=== PATIENT | male | born 1940 | race Caucasian/White ===

== ENCOUNTER 2018-02-13 14:02 | Emergency (ER) | payer MEDICARE, SELFPAY ==
[2018-02-13 14:03] VITALS: BP 88/40; PULSE 51; RESP 18; TEMP 36.4; O2SAT 95; BMI 26.1
[2018-02-13 14:14] VITALS: BP 100/45; PULSE 45
--- NOTE | 2018-02-13 14:24 | EKG12_ITS ---
Test Reason : POSSIBLE CP Blood Pressure : / mmHG Vent. Rate : 047 BPM Atrial Rate : 047 BPM P-R Int : 268 ms QRS Dur : 100 ms QT Int : 454 ms P-R-T Axes : 057 018 089 degrees QTc Int : 401 ms Sinus bradycardia with 1st degree A-V block Otherwise normal ECG Confirmed by WALTER GREGG ([id number]), newspaper or periodical editor EILEEN FORD ([id number]) on 02/17/2018 4:00:34 PM Referred By: TAYO Confirmed By:WALTER GREGG
--- NOTE | 2018-02-13 14:24 | RAD_ITS ---
STUDY: X-RAY CHEST REASON FOR EXAM: Male, 77 years old. Diaphoresis. Back pain. Near-syncope. TECHNIQUE: Single portable chest. COMPARISON: May 22, 2015. FINDINGS: There is stable, very mild prominence to the interstitium bilaterally and diffusely. There is no focal alveolar opacification. There is no pleural effusion. There is no pneumothorax. Sternal cerclage wires and vascular clips are present from a prior sternotomy and coronary artery bypass graft procedure (CABG). There is no demonstrated mediastinal lymphadenopathy or mediastinal mass lesion. Normal visualized pulmonary arteries. There is atherosclerotic calcification of the aortic arch with tortuosity. There are diffuse degenerative changes of the visualized thoracic spine. There is no acute osseous abnormality. There is no demonstrated abnormality of the visualized soft tissue structures of the upper abdomen. RAD/Chest 1 View (Portable) IMPRESSION: Stable exam. No evident acute cardiopulmonary disease. Status post CABG. Atherosclerotic peripheral vascular disease. Electronically Signed: Tomy Gaona MD at 15:15 EDT , Service support ,
[2018-02-13] MEDS: 0.9% Normal Saline 1,000 ML 1000 ML IV (14:51)
[2018-02-13 15:01] LABS: Albumin, Serum 3.7 g/dL (3.2-5.0); BUN 35 mg/dL (7-18); BUN/Creat Ratio 16.4 RATIO (10-20); Creatinine, Serum 2.13 mg/dL (0.70-1.30); EST Glomerular Filtration Rate 32 mL/min (>60); Est Glom Filt Rate - Afr Amer 39 mL/min (>60); Estimated Creatinine Clearance 27.21 ml/min; Globulin 3.4 g/dL (2.2-4.2); Glucose 138 mg/dL (74-106); Protein, Total 7.1 g/dL (6.4-8.2)
[2018-02-13 15:02] VITALS: BP 100/48; PULSE 45; RESP 13; O2SAT 97
[2018-02-13 15:02] LABS: ALB/GLOB Ratio 1.1 RATIO (0.9-2.4); AST(SGOT) 18 U/L (15-37); Alanine Aminotransfer ALT/SGPT 24 U/L (16-61); Alkaline Phosphatase 70 U/L (45-117); Anion Gap 5 (5-15); Calcium,Total 8.6 mg/dL (8.5-10.1); Chloride 104 mmol/L (98-107); Sodium Level 138 mmol/L (136-145)
[2018-02-13 15:05] LABS: Absolute Lymphocyte Count 1.12 X10^3/ul (0.83-4.51); Absolute Neutrophil Count 4.1 X10^3/uL (2.0-7.7); Basophil# 0.01 X10^3/uL; Basophil% 0.2 % (0-1); Eosinophil# 0.36 X10^3/uL; Eosinophils% 5.9 % (0-5); Hemoglobin 15.5 g/dl (13.0-16.5); Lymphocyte # 1.12 X10^3/ul (4.0); Lymphocyte % 18.2 % (19-41); Mean Corp Hgb Conc 33.7 g/gl (32-36); Mean Corpuscular Hgb 27.9 pg (27.0-32.0); Mean Corpuscular Volume 82.7 fL (80-94); Mean Platelet Vol. 12.5 fl (6.2-12.0); Monocyte# 0.58 X10^3/uL; Monocyte% 9.4 % (0-10); Neutrophil # 4.07 X10^3/uL (2.7-7.7); Neutrophil % 66.1 % (47-70); Platelet Count 133 K/mm3 (150-450); RBC Distribution Width CV 13.7 % (11.6-14.6); RBC Distribution Width SD 41.3 fl (35.1-43.9); Red Blood Count 5.56 M/mm3 (4.6-6.2); White Blood Count 6.2 K/mm3 (4.4-11.0)
[2018-02-13 15:11] LABS: POSITIVE COUNT NO; POSITIVE DIFFERENTIAL NO; POSITIVE MORPHOLOGY NO
[2018-02-13 15:16] LABS: Lactic Acid 1.4 mmol/L (0.4-2.0)
[2018-02-13 16:00] VITALS: BP 115/53; PULSE 46; RESP 12; O2SAT 97
[2018-02-13 16:08] VITALS: BP 109/49; BP 113/52; BP 115/53; PULSE 46
--- NOTE | 2018-02-13 16:34 | ED.VISSUMM ---
- ER Visit Summary Date of Service: 02/13/18 Chief Complaint: Brawley funny History of Present Illness: The patient is a 77 M who presents for low blood pressure. He states that he just felt funny today. He states that everything was smoky. He was not really dizzy there was no near syncope. He was diaphoretic. He also had some mild back pain between shoulder blades which has since resolved. No chest pain. No shortness of breath. He did set up some diarrhea earlier this week which has since resolved. He also just started Cardura yesterday. Physical Examination: Initial blood pressure 88/40 heart rate 51 respiratory rate 18 pulse ox 95% on room air Moist mucous membranes Skin warm and dry Alert Heart regular rhythm bradycardia Lungs are clear Abdomen soft No focal or lateralizing neurological deficits Test Results: EKG shows sinus rhythm at a rate of 47 with a first-degree AV block. Laboratory studies are notable for creatinine of 2.13 which is slightly up from prior labs of 1.8. Troponin and lactic acid are normal. Emergency Department Course and Treatment: Patient does have some evidence of mild dehydration with slight increase in his creatinine. He was given an IV fluid bolus here. On reevaluation his blood pressure is improved. Static vital signs were negative. He was asymptomatic with orthostatic vital signs. He was advised to hold his Cardura. I spoke to his primary care physician for close outpatient follow-up. The patient understands return for new or worsening symptoms and was discharged home. Treatment Plan: [] Disposition: Discharge Impression: Dehydration Adverse medication reaction Hypotension This note was generated with [employer] dictation software. It may contain incorrect words, spelling, and punctuation that were not noted in review of the chart prior to signing ED Disposition - Plan for ED Patient: Chief Complaint: Hypotension Referrals: Santo Nick MD [Primary Care Provider] -
--- NOTE | 2018-02-13 16:41 | ED.DEP ---
ED Disposition - Plan for ED Patient: Chief Complaint: Hypotension Instructions: ED Hypotension All Causes, ED Dehydration Referrals: Santo Nick MD [Primary Care Provider] - Additional Instructions: STOP MARIELLA.
[2018-02-13 16:46] VITALS: BP 113/49; PULSE 52; RESP 18; O2SAT 96
== END 2018-02-13 16:57 | disposition home or self-care (01) ==
LOC: ED 14:43
PROVIDERS: Emergency Provider Emergency Medicine; Family Provider Family Medicine; PCP Family Medicine
DX: E86.0 Dehydration (principal); T88.7XXA Unspecified adverse effect of drug or medicament, initial encounter; T44.6X5A Adverse effect of alpha-adrenoreceptor antagonists, initial encounter; I95.9 Hypotension, unspecified; M54.9 Dorsalgia, unspecified; R19.7 Diarrhea, unspecified; I10 Essential (primary) hypertension; E78.00 Pure hypercholesterolemia, unspecified; K21.9 Gastro-esophageal reflux disease without esophagitis; I25.10 Atherosclerotic heart disease of native coronary artery without angina pectoris; Z95.1 Presence of aortocoronary bypass graft; Z87.891 Personal history of nicotine dependence; I44.0 Atrioventricular block, first degree
CPT/HCPCS: 71045; 80053; 83605; 84484; 85025; 93005; 99285; J7030

== ENCOUNTER → 2018-02-17 12:46 | Outpatient (CLI) | payer MEDICARE, SELFPAY ==
[2018-02-17 14:04] LABS: Anion Gap 5 (5-15); BUN 32 mg/dL (7-18); BUN/Creat Ratio 18.8 RATIO (10-20); Calcium,Total 8.7 mg/dL (8.5-10.1); Chloride 104 mmol/L (98-107); EST Glomerular Filtration Rate 42 mL/min (>60); Est Glom Filt Rate - Afr Amer 50 mL/min (>60); Glucose 100 mg/dL (74-106); Potassium 4.1 mmol/L (3.5-5.1); Sodium Level 141 mmol/L (136-145)
== END ==
PROVIDERS: Family Provider Family Medicine; PCP Family Medicine; Visit Provider Family Medicine
DX: N28.9 Disorder of kidney and ureter, unspecified (principal)
CPT/HCPCS: 36415; 80048

== ENCOUNTER → 2018-04-16 09:12 | Outpatient (CLI) | payer MEDICARE, SELFPAY ==
[2018-04-16 10:41] LABS: Albumin, Serum 3.6 g/dL (3.2-5.0); BUN 28 mg/dL (7-18); BUN/Creat Ratio 16.8 RATIO (10-20); Calcium,Total 8.6 mg/dL (8.5-10.1); Chloride 102 mmol/L (98-107); Creatinine, Serum 1.67 mg/dL (0.70-1.30); EST Glomerular Filtration Rate 42 mL/min (>60); Est Glom Filt Rate - Afr Amer 51 mL/min (>60); Glucose 131 mg/dL (74-106); Phosphorus 2.8 mg/dL (2.5-4.9); Potassium 3.9 mmol/L (3.5-5.1); Sodium Level 138 mmol/L (136-145)
[2018-04-16 12:28] LABS: Microalbumin,Random Urine 32.1 mg/L (NO RANGE EST.); Microalbumin:Creatinine Ratio 38.1 mg/g CRE (<30 mg/g CRE)
== END ==
PROVIDERS: Family Provider Family Medicine; PCP Family Medicine; Visit Provider Family Medicine
DX: N28.9 Disorder of kidney and ureter, unspecified (principal)
CPT/HCPCS: 36415; 80069; 82043; 82570

== ENCOUNTER → 2018-04-23 10:52 | Outpatient (CLI) | payer MEDICARE, SELFPAY ==
--- NOTE | 2018-04-23 10:54 | RAD_ITS ---
STUDY: X-RAY - LUMBAR SPINE REASON FOR EXAM: Male, 77 years old. Chronic low back pain with left radiculopathy TECHNIQUE: Five view(s) of the lumbar spine were obtained. COMPARISON: None FINDINGS: Normal lumbar lordosis. There is trace levoscoliosis of the lumbar spine. There is normal alignment of the vertebrae. Osteophytes are scattered throughout the lower thoracic and lumbar spine. Pedicle screws and rods are present bilaterally at L4 and L5. There is marked disc space narrowing at L5-S1. There is moderate disc space narrowing at L1-2, L2-3 and L3-4. There is atherosclerotic calcification of the abdominal aorta without a demonstrated aneurysm. RAD/L/S Spine Min 4 Views IMPRESSION: There are degenerative changes throughout the lower spine. This is most severe at L5-S1 where there is marked disc space narrowing and surrounding sclerosis. There is moderate disc space narrowing from L1 through L4. There are surgical changes at L4-5. There is trace levoscoliosis. Electronically Signed: Ximena Reeves MD at 20:21 EDT Tel Direct: [phone], Service support ,
== END ==
PROVIDERS: Family Provider Family Medicine; PCP Family Medicine; Visit Provider Family Medicine
DX: M51.37 Other intervertebral disc degeneration, lumbosacral region (principal)
CPT/HCPCS: 72110

== ENCOUNTER 2018-06-17 08:00 | Outpatient (RCR) | payer MEDICARE, SELFPAY ==
--- NOTE | 2018-04-29 10:04 | HP.PTEVAL ---
Patient's Visit Information BETH TOBIAS is a 77 year old M referred to Physical Therapy by Santo Nick with a diagnosis of Chronic lumbar DD w/ hx of fusions. Date of Evaluation: 04/29/18 Physical Therapist: Smith Bojorquez PT, - Visit Plan Frequency: 1x/Week Duration: 8weeks Plan: Dynamic lumbar stability, hip mobility stretches/manual work, LE flexibility. Pt with history of L4-5 fusion ~20 years ago. - Subjective Subjective: Pt is a 77 y/o male with referral for chronic low back pain with history of fusion. He reports his symptoms are located in the L side of his low back and L thigh/ortiz. About 6 months ago he started noticing L radicular symptoms. He does not recall any JENNA. His symptoms are inconsistent but are usually worsened with walking. He denies symptoms currently. He reports a history of two back surgeries, most recent being ~20 years ago (fusion L4-5). He did have previous PT in 2012 which was beneficial. Denies n/t in LEs, weakness, b/b incontinence, some difficulties sleeping. Reports recent fall ~1 week ago when he was walking up a step, this is the first time he fell in a long time per pt. Aggrevating factors: Prolonged standing and walking. Easing factors: sitting, rest. Occupation: retired parcel post truck driver. - Pain low back Pain Intensity (Out of 10): 0 Pain Intensity Range: 0, 10 L radicular Pain Intensity (Out of 10): 0 Pain Intensity Range: 0, 10 - Objective OBSERVATION: Appears anxious in sitting, abrasions R lateral knee. PALPATION: No tenderness, Iliac crests aligned. GAIT: Forward flexed at hips, decreased hip extension with terminal stance. ROM: Lumbar ff 75%, bb* 25% (increases), B LF 50%. Hip PROM: R mod limitation flexion, severe IR and extension; L severe limitation IR and extension. NEURO: Dermatomes intact, myotomes intact, L DTRs: L3 2+, S1 0; R DTRs L3 0, S1 0. STRENGTH: Max cues to engage TrA. FLEXIBILITY: Hamstrings and iliopsoas severe tightness. - Goals Goal 1:: Pt will demonstrate moderate B hip mobility deficits with internal rotation and extension to help normalize gait mechanics. Goal Time Frame: 4-6 Weeks Goal 2:: Pt will report ability to ambulate for 20 minutes consistently without symptom reproduction to improve tolerance with community ambulation. Goal Time Frame: 4-6 Weeks Goal 3:: Pt will report no limitation with lead electrical controls engineer to improve activity level at home. Goal Time Frame: 4-6 Weeks Goal 4:: Pt will be independent with HEP to sustain gains made in the clinic. Goal Time Frame: 4-6 Weeks Goal 5:: Pt will improve RICHARD-back score by 5 or greater to show improvement with function and QOL. Goal Time Frame: 4-6 Weeks - Rehabilitation Potential Physical Therapy Diagnosis: Pt is a 77 y/o male with referral of chronic lumbar DD w/ hx of fusions. He reports intermittent L radicular symptoms while walking as his chief complaint. On exam, he demonstrates severe hip mobility limitations, inability to isolate the transverse abdominus, and severe LE flexibility deficits. He has activity limitations that include difficulty with prolonged walking, prolonged standing. This limits his participation with community ambulation and work related tasks. Pt would benefit from skilled PT to address the mentioned impairments to maximize function. Rehabilitation Potential: Good - Anticipated Interventions Patient/Client Instruction: Educate patient on: Condition, Plan of Care For the Purpose of:: To decrease pain, To increase ROM, To improve muscle performance and motor function, To improve ability to perform ADL's, To improve ability of physical actions for home/community/work/leisure, To improve gait and locomotor functions, To improve health of tissue, To decrease soft tissue restriction, To increase flexibility/ROM, To reduce risk of recurrence, To improve self management Therapeutic Exercise to Include: Strength training, Endurance training, Postural training, Flexibilty training, Gait and locomotor training, Active ROM, Dynamic Lumbar Stabilization For the Purpose of:: To decrease pain, To increase ROM, To improve muscle performance and motor function, To increase tolerance to activity/condition/position, To improve ability of physical actions for home/community/work/leisure, To improve gait and locomotor functions, To improve health of tissue, To decrease soft tissue restriction, To increase flexibility/ROM, To improve endurance, To reduce risk of recurrence, To improve self management Manual Therapy Techniques to Include: Mobilization, Passive ROM, Soft tissue mobilization For the Purpose of:: To decrease pain, To increase ROM, To improve muscle performance and motor function, To increase tolerance to activity/condition/position, To improve ability of physical actions for home/community/work/leisure, To improve gait and locomotor functions, To improve health of tissue, To decrease soft tissue restriction, To increase flexibility/ROM, To improve endurance, To reduce risk of recurrence, To improve self management TENS: Yes IF ES: Yes Other electric stimulation: Yes Cryotherapy (ice pack, ice massage): Yes Thermo therapy (hot pack): Yes Ultrasound (thermal/non thermal): Yes For the Purpose of:: To decrease pain, To increase ROM, To decrease soft tissue restriction, To increase flexibility/ROM Thank you for the opportunity to evaluate your patient. For Medicare and Medicare HMO plans, please review the plan of care and approve it. It will need to be FAXED BACK to us at [phone] for Medicare purposes. Please let me know if there are questions or concerns regarding this plan of care. Physician Signature: Date:
--- NOTE | 2018-06-17 08:29 | HP.PTREVAL ---
Santo Nick, It has been my pleasure to treat BETH TOBIAS over the last 6 visits for Chronic lumbar DD w/ hx of fusions. Please see the progress note below for an update on the physical therapy plan of care! Subjective: DOING WELL.. EXERCISING AT HOME. NO PROBLEMS WITH ADL'S Objective/Function: POSTURE: MILD FOWARD POSTURE. NEURO:INTACT. MMT: QUADS/HAMS/HIP/ANKLE 4/5. GAIT: NORMAL LIZ RECIPROCAL PATTERN. LUMBAR ROM: FLEXION MIN/MOD LOSS,EXTENSION MOD LOSS. FLEXABLITY: HAMS MIN TIGHT Plan Plan: D/C TO HEP Goals Goal 1:: Pt will demonstrate moderate B hip mobility deficits with internal rotation and extension to help normalize gait mechanics. Goal Time Frame: 4-6 Weeks Goal Progress: Goal Met Goal 2:: Pt will report ability to ambulate for 20 minutes consistently without symptom reproduction to improve tolerance with community ambulation. Goal Time Frame: 4-6 Weeks Goal Progress: Progressing Goal 3:: Pt will report no limitation with forestry laborer to improve activity level at home. Goal Time Frame: 4-6 Weeks Goal Progress: Progressing Goal 4:: Pt will be independent with HEP to sustain gains made in the clinic. Goal Time Frame: 4-6 Weeks Goal Progress: Goal Met Goal 5:: Pt will improve RICHARD-back score by 5 or greater to show improvement with function and QOL. Goal Time Frame: 4-6 Weeks Goal Progress: Goal Met Anticipated Interventions Patient/Client Instruction: Educate patient on: Condition, Plan of Care For the Purpose of:: To decrease pain, To increase ROM, To improve muscle performance and motor function, To improve ability to perform ADL's, To improve ability of physical actions for home/community/work/leisure, To improve gait and locomotor functions, To improve health of tissue, To decrease soft tissue restriction, To increase flexibility/ROM, To reduce risk of recurrence, To improve self management Therapeutic Exercise to Include: Strength training, Endurance training, Postural training, Flexibilty training, Gait and locomotor training, Active ROM, Dynamic Lumbar Stabilization For the Purpose of:: To decrease pain, To increase ROM, To improve muscle performance and motor function, To increase tolerance to activity/condition/position, To improve ability of physical actions for home/community/work/leisure, To improve gait and locomotor functions, To improve health of tissue, To decrease soft tissue restriction, To increase flexibility/ROM, To improve endurance, To reduce risk of recurrence, To improve self management Manual Therapy Techniques to Include: Mobilization, Passive ROM, Soft tissue mobilization For the Purpose of:: To decrease pain, To increase ROM, To improve muscle performance and motor function, To increase tolerance to activity/condition/position, To improve ability of physical actions for home/community/work/leisure, To improve gait and locomotor functions, To improve health of tissue, To decrease soft tissue restriction, To increase flexibility/ROM, To improve endurance, To reduce risk of recurrence, To improve self management TENS: Yes IF ES: Yes Other electric stimulation: Yes Cryotherapy (ice pack, ice massage): Yes Thermo therapy (hot pack): Yes Ultrasound (thermal/non thermal): Yes For the Purpose of:: To decrease pain, To increase ROM, To decrease soft tissue restriction, To increase flexibility/ROM Please do not hesitate to contact me at [phone] by phone or if you have questions or concerns regarding this new plan of care! Sincerely, Smith Bojorquez PT,
--- NOTE | 2018-06-18 09:29 | HP.PTDCSUM_ITS ---
HP - PT D/C Summary It has been my pleasure to treat BETH TOBIAS under orders from Santo Nick, for the diagnosis of Chronic lumbar DD w/ hx of fusions for a total of 6 visit(s ). Discharge Date: Please see the following information for a summary of their discharge status. - Subjective Subjective: DOING WELL.. EXERCISING AT HOME. NO PROBLEMS WITH ADL'S - Pain low back Pain Intensity (Out of 10): 0 L radicular Pain Intensity (Out of 10): 0 - Overall Improvement % Improvement: 80 - Objective Objective/Function: POSTURE: MILD FOWARD POSTURE. NEURO:INTACT. MMT: QUADS/ HAMS/HIP/ANKLE 4/5. GAIT: NORMAL LIZ RECIPROCAL PATTERN. LUMBAR ROM: FLEXION MIN/MOD LOSS,EXTENSION MOD LOSS. FLEXABLITY: HAMS MIN TIGHT - Goals Goal 1:: Pt will demonstrate moderate B hip mobility deficits with internal rotation and extension to help normalize gait mechanics. Goal Progress: Goal Met Goal 2:: Pt will report ability to ambulate for 20 minutes consistently without symptom reproduction to improve tolerance with community ambulation. Goal Progress: Progressing Goal 3:: Pt will report no limitation with certified wellness program manager to improve activity level at home. Goal Progress: Progressing Goal 4:: Pt will be independent with HEP to sustain gains made in the clinic. Goal Progress: Goal Met Goal 5:: Pt will improve RICHARD-back score by 5 or greater to show improvement with function and QOL. Goal Progress: Goal Met - Plan Plan: D/C TO HEP - D/C Information If there are questions or concerns regarding this patient's physical therapy, please feel free to call me at [phone]. Thank you for the referral of this patient. Sincerely, Smith Bojorquez, PT,
== END 2018-06-17 19:00 | disposition home or self-care (01) ==
LOC: PT 08:00
PROVIDERS: Family Provider Family Medicine; PCP Family Medicine; Visit Provider Family Medicine
DX: M51.36 Other intervertebral disc degeneration, lumbar region (principal); M76.02 Gluteal tendinitis, left hip; Z98.1 Arthrodesis status
CPT/HCPCS: 97014; 97110; 97162; G0283

== ENCOUNTER → 2018-10-23 08:46 | Outpatient (CLI) | payer BC, SELFPAY ==
[2018-10-23 10:36] LABS: ALB/GLOB Ratio 1.2 RATIO (0.9-2.4); AST(SGOT) 21 U/L (15-37); Alanine Aminotransfer ALT/SGPT 30 U/L (16-61); Albumin, Serum 3.7 g/dL (3.2-5.0); Alkaline Phosphatase 68 U/L (45-117); Anion Gap 9 (5-15); BUN 25 mg/dL (7-18); BUN/Creat Ratio 16.4 RATIO (10-20); Calcium,Total 8.7 mg/dL (8.5-10.1); Chloride 105 mmol/L (98-107); Cholesterol 138 mg/dL (200); Creatinine, Serum 1.52 mg/dL (0.70-1.30); EST Glomerular Filtration Rate 47 mL/min (>60); Est Glom Filt Rate - Afr Amer 57 mL/min (>60); Glucose 123 mg/dL (74-106); High Density Lipoprotein 43 mg/dL; Potassium 3.7 mmol/L (3.5-5.1); Protein, Total 6.7 g/dL (6.4-8.2); Sodium Level 142 mmol/L (136-145); Thyroid Stim Hormone (TSH) 2.42 uIU/mL (0.358-3.74); Triglycerides 132 mg/dL; Very Low Density Lipoprotein 26 mg/dL (5-40)
[2018-10-23 10:42] LABS: Hemoglobin A1c 6.5 % (4.2-6.3)
[2018-10-23 10:44] LABS: Microalbumin,Random Urine 40.6 mg/L (NO RANGE EST.); Microalbumin:Creatinine Ratio 23.7 mg/g CRE (<30 mg/g CRE)
== END ==
PROVIDERS: Family Provider Family Medicine; PCP Family Medicine; Visit Provider Family Medicine
DX: E11.29 Type 2 diabetes mellitus with other diabetic kidney complication (principal); I10 Essential (primary) hypertension
CPT/HCPCS: 36415; 80053; 80061; 82043; 82570; 83036; 84443

== ENCOUNTER 2019-07-03 05:29 | Emergency (ER) | payer BC, SELFPAY ==
[2019-07-03] VITALS (7 sets, daily range): BP systolic 151–224; BP diastolic 58–106; PULSE 64–90; RESP 16–22; TEMP 36.6–37.3; O2SAT 95–98; BMI 26.7
--- NOTE | 2019-07-03 06:24 | CT_ITS ---
STUDY: CT ABDOMEN AND PELVIS WITH CONTRAST REASON FOR EXAM: Male, 79 years old. Diffuse abdominal pain RADIATION DOSAGE (If Supplied By Facility): CTDIvol = ( 16.25 ) mGy, DLP = ( 1337.74 ) mGycm TECHNIQUE: Transaxial images were obtained from the dome of the diaphragm to the symphysis pubis without oral contrast. 100CC IV Isovue 300 was administered. Sagittal and coronal images were reconstructed. Individualized dose optimization techniques were used for this CT. COMPARISON: None. FINDINGS: There is minimal lower lobe atelectasis. Sternotomy wires are seen midline. The base the heart appears borderline enlarged. Normal liver. Normal gallbladder and extrahepatic biliary system. There is a nonspecific subtle small 3 mm round splenic density or exophytic splenic density just at the underlying level of the left hemidiaphragm. Normal pancreas. Normal bilateral adrenal glands. Normal right kidney. There is a left-sided extrarenal pelvis. There is a indeterminate hypodense exophytic mass left kidney with an associated punctate calcification that measures approximately 1 x 1 cm and has elevated Hounsfield units image #42 axial views image #92 coronal views. There is a small hiatal hernia. There are multiple mildly distended loops of small bowel. Within the right lower quadrant there is an enhancing appearance of the right lower quadrant small bowel. There are tortuous loops mildly distended enhancing small bowel adjacent to a focus of right lower quadrant dependent complex appearing fluid with multiple gas bubbles.. See image #81 of the axial views .. There is mild to moderate amount of stool within the colon. There are numerous diverticula present within the colon with colonic tortuosity. There is a thick-walled appearance of the distal descending colon with adjacent inflammatory change and bubbles of extraluminal gas within the pelvic fat within the dependent portions of the pelvis. There is a tortuous appearance of the proximal sigmoid with a featureless ratty appearance without significant diverticula. Adjacent torturous descending colon appears focally thickened and inflamed without definitive adjacent gas bubbles. There is focal inflammation adjacent to the redundant loop in the left side of the pelvis in September. The appendix is visualized and appears normal. The appendix is thought to be visualized on image #39 through 59 of the coronal views. The cecum is high riding within the right upper quadrant appears to be cephalad to the aforementioned inflammatory change. Aorta is densely calcified. There is calcification of the takeoff of the celiac and superior mesenteric arteries. There is dense calcification of the left renal artery. Normal inferior vena cava. Normal retroperitoneum. The bladder is distended. The prostate is significantly enlarged measuring 5.6 x 6.4 x 7 cm. This pushes into the base of the bladder and is likely causing some element of chronic outlet obstruction. Normal abdominal wall. There is multilevel degenerative change. There is been a spinal fusion at L4-L5. At L5-S1 there is severe disc space narrowing broad disc osteophyte severe neural foraminal narrowing and moderate to moderate central stenosis. There is degenerative change of the bilateral hip joints. CT/Abdomen/Pelvis W IV Cont ONLY IMPRESSION: Pneumoperitoneum. Free fluid. Findings are most consistent with a bowel leak and/or rupture. There is free fluid and free air particularly layering within the right side of the pelvis within the deep right pericolic gutter. There are also bubbles of gas within the pelvis. There are numerous diverticula present and a inflamed ill-defined appearance of the wall and several levels of the distal descending colon and a ratty appearance of the proximal sigmoid colon which would just multifocal diverticulitis, probable reactive enteritis with ileus however given the location of the free fluid and gas adjacent to primarily loops of enhancing distended small bowel in the right lower quadrant, cannot entirely exclude a enteritis with small bowel leak. These findings were called to Dr. Kelsey on a stat basis. Significantly enlarged prostate projecting into the base of the bladder probable element of partial chronic bladder outlet obstruction. Status post sternotomy. Atypical hypoechoic exophytic cyst potentially 1 cm mass within the left kidney, further evaluation is recommended with ultrasound and/or follow-up studies such as MRI if clinically appropriate. Comparison to a prior study would be helpful, if available. Advanced atherosclerotic disease of the aorta and branches. Advanced degenerative changes of the thoracolumbar spine. Status post spinal fusion L4-L5. N.B. : The above information has been verbally conveyed by Linette Goodrich MD to Dr. Laure MD, on 07/03/2019 08:58:17 (ET). Electronically Signed: Linette Goodrich MD at 8:59 EDT Tel , Service support ,
--- NOTE | 2019-07-03 06:24 | EKG12_ITS ---
Test Reason : Blood Pressure : / mmHG Vent. Rate : 070 BPM Atrial Rate : 070 BPM P-R Int : 232 ms QRS Dur : 096 ms QT Int : 408 ms P-R-T Axes : 042 001 089 degrees QTc Int : 440 ms Sinus rhythm with 1st degree A-V block Nonspecific ST and T wave abnormality Abnormal ECG Confirmed by IRMA BLEDSOE, OLMAN ([id number]), makeup editor EILEEN FORD ([id number]) on 07/06/2019 11:54:53 AM Referred By: Confirmed By:EUNICE SOLIS MD
[2019-07-03] MEDS: Ondansetron 4 MG/2 ML Vial IV ×2 (06:32→07:34)
[2019-07-03] MEDS: 0.9% Normal Saline 1,000 ML 1000 ML IV (06:32)
[2019-07-03 06:44] LABS: Absolute Neutrophil Count 7.4 X10^3/uL (2.0-7.7); Basophil# 0.01 X10^3/uL; Basophil% 0.1 % (0-1); Eosinophil# 0.14 X10^3/uL; Eosinophils% 1.5 % (0-5); Hematocrit 51.1 % (40-54); Hemoglobin 16.7 g/dL (13.0-16.5); Lymphocyte % 12.7 % (19-41); Mean Corp Hgb Conc 32.7 g/dL (32-36); Mean Corpuscular Volume 85.6 fL (80-94); Mean Platelet Vol. 11.9 fl (6.2-12.0); Monocyte# 0.68 X10^3/uL; Monocyte% 7.2 % (0-10); NRBC Flagged by Analyzer 0 % (0-5); Neutrophil # 7.37 X10^3/uL (2.7-7.7); Platelet Count 146 K/mm3 (150-450); RBC Distribution Width SD 40.3 fl (35.1-43.9); Red Blood Count 5.97 M/mm3 (4.6-6.2); White Blood Count 9.5 K/mm3 (4.4-11.0)
[2019-07-03 06:57] LABS: AST(SGOT) 16 U/L (15-37); Alanine Aminotransfer ALT/SGPT 21 U/L (16-61); Albumin, Serum 3.9 g/dL (3.2-5.0); Alkaline Phosphatase 77 U/L (45-117); Anion Gap 8 (5-15); BUN 30 mg/dL (7-18); Calcium,Total 8.9 mg/dL (8.5-10.1); Chloride 106 mmol/L (98-107); Creatinine, Serum 1.67 mg/dL (0.70-1.30); EST Glomerular Filtration Rate 42 mL/min (>60); Est Glom Filt Rate - Afr Amer 51 mL/min (>60); Estimated Creatinine Clearance 32.43 ml/min; Globulin 3.8 g/dL (2.2-4.2); Glucose 130 mg/dL (74-106); Lipase 160 U/L (73-393); Potassium 3.9 mmol/L (3.5-5.1); Protein, Total 7.7 g/dL (6.4-8.2); Sodium Level 142 mmol/L (136-145)
--- NOTE | 2019-07-03 07:12 | ED.DCSUM_ITS ---
- ER Visit Summary Date of Service: 07/03/19 Chief Complaint: Abdominal pain History of Present Illness: The patient is a 79 M who presents with abdominal pain that began today. Patient states he has been constipated. Patient states he took 3 doses of a medicine to help with his constipation but had no relief of his constipation. Patient admits to some nausea and vomiting. Patient also admits to some urinary retention. Patient denies any dysuria or hematuria. Patient denies any fevers or chills. Patient does admit to some rhinorrhea. Patient also admits to some pain radiating into his back. Patient states the pain became worse while he was here in the emergency department. Physical Examination: Vital signs are stable except for an elevated blood pressure of 224/85. Patient is afebrile. Patient is slightly diaphoretic on examination. Oral mucosa is pink and moist. Neck is supple. Trachea is midline. There is no JVD noted. Heart was regular rate and rhythm. Lungs are clear and equal bilateral. Abdomen is soft. Bowel sounds are normal. There is diffuse tenderness. There is no rebound noted. There is some voluntary guarding noted. Cranial nerves II through XII are intact. There are no focal motor or sensory deficits noted. Test Results: EKG showed normal sinus rhythm with a rate of 70. There are nonspecific ST-T wave changes. CBC was normal. Basic metabolic profile showed a creatinine of 1.67 which is consistent with prior results. BUN was slightly elevated at 30. CT scan of the abdomen and pelvis was obtained for possible aortic dissection. This is pending. Emergency Department Course and Treatment: Patient was given a dose of labetalol here in the emergency department. Patient was given a dose of Zofran. Patient was given IV fluids due to the elevation of creatinine and CT scan dye. Urine straight catheter was ordered because the patient complaining of urinary retention. However, patient was able to urinate prior to the straight cath. Patient states he felt like he was able to empty his bladder. Patient blood pressure still remained elevated and was given a repeat dose of labetalol. Patient was still having some nausea and vomiting and was given a repeat dose of Zofran. Disposition: Care of patient was turned over to the oncoming physician. Impression: 1. Abdominal pain 2. Hypertension This note was generated with [employer] software. It may contain incorrect words, spelling, and punctuation that were not noted in review of the chart prior to signing ED Disposition - Plan for ED Patient: Referrals: Santo Nick MD [Primary Care Provider] -
--- NOTE | 2019-07-03 08:46 | NURSING ---
DR SANDOVAL PAGED
[2019-07-03] MEDS: fentaNYL 100 MCG/2 ML Ampul 50 MCG IV ×2 (08:59→10:24)
--- NOTE | 2019-07-03 09:19 | NURSING ---
DR ROSAS IN ER
--- NOTE | 2019-07-03 09:29 | NURSING ---
CALLING [facility] FOR TRANSFER.
--- NOTE | 2019-07-03 09:54 | NURSING ---
ACCEPTING DR DUVAL, ER DOC [facility] ER TO ER [phone]
--- NOTE | 2019-07-03 11:48 | CON.PCM_ITS ---
Reason for Consult Date of Consultation: 07/03/19 Reason for Consultation: abdominal pain, diverticulitis versus other perforation History of Present Illness: The patient is a 79 year old M with moderate dementia who presents with a one- day history of abdominal pain. The patient states his usual state of health when he had onset of lower abdominal pain. His stated he came in after cutting the grass yesterday complaining of abdominal pain and then felt that his abdomen was too uncomfortable to eat. He basically had anorexia for the remainder of the day. He denied true fevers or chills. He noted no diarrhea or melena or blood per rectum. The patient's states he's had abnormal bowel function for some time and states he hasn't had a good bowel movement for at least a month and that this is nothing new for him. When he presented to [facility] in the hospital, he was found of a mild low-grade fever and was hypertensive. comments to me by the emergency physician was that he initially looked bad on initial clinical evaluation. Laboratory studies were obtained which demonstrated a high normal white blood cell count but a left shift. his BUN and creatinine are elevated. CT scan of the abdomen and pelvis with IV but without oral contrast was obtained. Critical findings were noted by the radiologist and referred to the emergency physician. Findings included: FINDINGS: There is minimal lower lobe atelectasis. Sternotomy wires are seen midline. The base the heart appears borderline enlarged. Normal liver. Normal gallbladder and extrahepatic biliary system. There is a nonspecific subtle small 3 mm round splenic density or exophytic splenic density just at the underlying level of the left hemidiaphragm. Normal pancreas. Normal bilateral adrenal glands. Normal right kidney. There is a left-sided extrarenal pelvis. There is a indeterminate hypodense exophytic mass left kidney with an associated punctate calcification that measures approximately 1 x 1 cm and has elevated Hounsfield units image #42 axial views image #92 coronal views. There is a small hiatal hernia. There are multiple mildly distended loops of small bowel. Within the right lower quadrant there is an enhancing appearance of the right lower quadrant small bowel. There are tortuous loops mildly distended enhancing small bowel adjacent to a focus of right lower quadrant dependent complex appearing fluid with multiple gas bubbles.. See image #81 of the axial views .. There is mild to moderate amount of stool within the colon. There are numerous diverticula present within the colon with colonic tortuosity. There is a thick-walled appearance of the distal descending colon with adjacent inflammatory change and bubbles of extraluminal gas within the pelvic fat within the dependent portions of the pelvis. There is a tortuous appearance of the proximal sigmoid with a featureless ratty appearance without significant diverticula. Adjacent torturous descending colon appears focally thickened and inflamed without definitive adjacent gas bubbles. There is focal inflammation adjacent to the redundant loop in the left side of the pelvis in September. The appendix is visualized and appears normal. The appendix is thought to be visualized on image #39 through 59 of the coronal views. The cecum is high riding within the right upper quadrant appears to be cephalad to the aforementioned inflammatory change. Aorta is densely calcified. There is calcification of the takeoff of the celiac and superior mesenteric arteries. There is dense calcification of the left renal artery. Normal inferior vena cava. Normal retroperitoneum. The bladder is distended. The prostate is significantly enlarged measuring 5.6 x 6.4 x 7 cm. This pushes into the base of the bladder and is likely causing some element of chronic outlet obstruction. Normal abdominal wall. There is multilevel degenerative change. There is been a spinal fusion at L4-L5. At L5-S1 there is severe disc space narrowing broad disc osteophyte severe neural foraminal narrowing and moderate to moderate central stenosis. There is degenerative change of the bilateral hip joints. IMPRESSION: Pneumoperitoneum. Free fluid. Findings are most consistent with a bowel leak and/or rupture. There is free fluid and free air particularly layering within the right side of the pelvis within the deep right pericolic gutter. There are also bubbles of gas within the pelvis. There are numerous diverticula present and a inflamed ill-defined appearance of the wall and several levels of the distal descending colon and a ratty appearance of the proximal sigmoid colon which would just multifocal diverticulitis, probable reactive enteritis with ileus however given the location of the free fluid and gas adjacent to primarily loops of enhancing distended small bowel in the right lower quadrant, cannot entirely exclude a enteritis with small bowel leak. These findings were called to Dr. Kelsey on a stat basis. Significantly enlarged prostate projecting into the base of the bladder probable element of partial chronic bladder outlet obstruction. Status post sternotomy. patient has a history of dementia. He has a history of coronary disease and is status post coronary bypass grafting. He underwent cardiac catheterization in May 2017 [facility]. report described severe [place] coronary disease with widely patent grafts moderate severe disease in the midportion of the circumflex vessel. Past Medical History Past Medical History (Chronic Problems): Chronic Problems Stenosis of esophagus (Chronic) HTN (hypertension) (Chronic) HLD (hyperlipidemia) (Chronic) Coronary atherosclerosis of [place] coronary artery (Chronic) Hx of CABG (Chronic) Allergies morphine Allergy (Verified 02/13/18 14:03) Itching Home Medications: Ambulatory Orders Medication Instructions Recorded Aspirin 81 mg PO DAILY@0800 11/11/13 Atorvastatin Calcium 80 mg PO DAILY 02/13/18 Chlorthalidone 12.5 mg PO DAILY 02/13/18 Cholecalciferol (Vitamin D3) 2,000 unit PO DAILY 02/13/18 [Vitamin D3] Finasteride [Proscar] 5 mg PO DAILY 02/13/18 Pantoprazole Sodium [Protonix] 40 mg PO DAILY 02/13/18 Sertraline HCl [Zoloft] 50 mg PO DAILY 02/13/18 Cyanocobalamin (Vitamin B-12) 1,000 mcg PO DAILY 07/03/19 [B-12] Donepezil HCl [Aricept] 5 mg PO QHS 07/03/19 Ezetimibe [Zetia] 10 mg PO DAILY 07/03/19 Lisinopril [Zestril] 40 mg PO DAILY 07/03/19 Terazosin HCl 10 mg PO DAILY 07/03/19 Surgical History: coronary bypass surgery Smoking Status: Former smoker Review of Systems Constitutional: Reports: Anorexia, Malaise, Weakness, Fatigue HEENT: Denies: Head Aches, Sinus Congestion, Sinus Drainage Cardiovascular: Denies: Chest Pain, Palpitations Respiratory: Denies: Cough, Shortness of breath at rest, Sputum production Gastrointestinal: Reports: Abdominal Pain, Constipation Genitourinary: Denies: Dysuria Musculoskeletal: Denies: Joint Pain, Joint Tenderness Skin: Denies: Rash, Wounds Neurological: Denies: Numbness, Tingling, Focal weakness Psychiatric: Denies: Anxiety, Depression, Homicidal Ideations, Suicidal Ideations Hematologic/ Lymphatic: Denies: Easy Bruising, Easy Bleeding Subjective: Complaining of significant abdominal pain - Physical Exam General: Alert, Cooperative Lungs: Clear to auscultation, Normal air movement Cardiovascular: Regular rate, Regular Rhythm Abdomen: Soft, Hypoactive Bowel Sounds, Obese, Tender - throughout all 4 quadrants with mild guarding and some rebound Vital Signs Temp Pulse Resp BP Pulse Ox 99.1 F 82 16 153/62 H 95 07/03/19 09:00 07/03/19 10:00 07/03/19 10:00 07/03/19 10:00 07/03/19 10:00 Oxygen Delivery Method Room Air Weight: 77.5 kg Body Mass Index (BMI) 26.7 Intake and Output for Last 24 Hours 07/01/19 07/02/19 07/03/19 23:59 23:59 23:59 Intake Total 1100 / 1100 Balance 1100 / 1100 Laboratory Tests Past 24 Hrs 07/03/19 07/03/19 05:40 05:40 WBC 9.5 RBC 5.97 Hgb 16.7 H Hct 51.1 MCV 85.6 MCH 28.0 MCHC 32.7 RDW Std Deviation 40.3 RDW Coeff of Joyc[place] 13.0 Plt Count 146 L MPV 11.9 Immature Gran % (Auto) 0.500 Neut % (Auto) 78.0 H Lymph % (Auto) 12.7 L [place] % (Auto) 7.2 Eos % (Auto) 1.5 Baso % (Auto) 0.1 Absolute Neuts (auto) 7.4 Absolute Lymphs (auto) 1.20 Nucleated RBC % 0 Sodium 142 Potassium 3.9 Chloride 106 Carbon Dioxide 28.0 Anion Gap 8 BUN 30 H Creatinine 1.67 H Estim Creat Clear Calc 32.43 Est GFR (MDRD) Af Amer 51 L Est GFR (MDRD) Non-Af 42 L BUN/Creatinine Ratio 18.0 Glucose 130 H Calcium 8.9 Total Bilirubin 1.00 AST 16 ALT 21 Alkaline Phosphatase 77 Troponin I < 0.015 Total Protein 7.7 Albumin 3.9 Globulin 3.8 Albumin/Globulin Ratio 1.0 Lipase 160 Assessment/Plan patient with sudden onset of abdominal pain, history of coronary disease with severe [place] coronary artery disease. Questionable complicated diverticulitis versus other etiology Review the CAT scan does not seem quite as significant as noted in the radiology report, but the patient does seem to have diverticulitis with what appears to be inflammation and phlegmon very very low in the pelvis likely retroperitoneal at the level of nearly the prostate. This would be very low for diverticulitis and somewhat atypical in that location. It is possible that segment of diverticulitis more proximally tracked distally but this would make emergency surgery somewhat challenging. Whether this is just phlegmon and some air bubbles or early abscess difficult to ascertain. This also doesn't quite make sense with what appears to be some degree of fluid and small air bubbles in the right pelvic area. While the CAT scan images himself does not appear very ominous, the patient has a significantly tender diffuse abdominal tenderness exam. In discussing the findings with the patient, his in the emergency physician-this seems somewhat atypical for a classic diverticulitis and inflammation tracks very very low. The patient's discomfort seems out of proportion to his white blood cell count and the obviousness of the findings. Given that I'm concerned about local conservative treatment of antibiotics and observation to see if percutaneous drainage would be appropriate in a few days. I prefer to have him transferred to a tertiary care center where if attempt at CT-guided aspiration was felt to be indicated could be performed more promptly as we do not have the surface of the weekend. Further if operative intervention was determined to be necessary, given the very low location of inflammation would feel that evaluation and treatment by a colorectal surgeon would be optimal.
== END 2019-07-03 10:34 | disposition short-term general hospital (02) ==
PROVIDERS: Emergency Medicine; Emergency Provider Emergency Medicine; Family Provider Family Medicine; PCP Family Medicine
DX: R10.9 Unspecified abdominal pain (principal); I10 Essential (primary) hypertension; R33.8 Other retention of urine; K59.00 Constipation, unspecified; F03.90 Unspecified dementia, unspecified severity, without behavioral disturbance, psychotic disturbance, mood disturbance, and anxiety; I25.10 Atherosclerotic heart disease of native coronary artery without angina pectoris; Z95.1 Presence of aortocoronary bypass graft; E78.5 Hyperlipidemia, unspecified; Z88.5 Allergy status to narcotic agent; Z79.82 Long term (current) use of aspirin; Z87.891 Personal history of nicotine dependence; Z98.1 Arthrodesis status; Z79.899 Other long term (current) drug therapy; K22.2 Esophageal obstruction; K52.9 Noninfective gastroenteritis and colitis, unspecified; K57.92 Diverticulitis of intestine, part unspecified, without perforation or abscess without bleeding; I70.0 Atherosclerosis of aorta
CPT/HCPCS: 74177; 80053; 83690; 84484; 85025; 93005; 96361; 96365; 96375; 96376; 99283; Q9967; A4216; J2405

== ENCOUNTER 2019-07-10 15:45 | Inpatient (IN) | payer MEDICARE, SELFPAY ==
[2019-07-03 05:30] VITALS: BMI 26.7
[2019-07-10 15:57] VITALS: BP 136/51; PULSE 75; RESP 18; TEMP 36.8; O2SAT 96; BMI 25.4
--- NOTE | 2019-07-10 16:42 | HP.PCM_ITS ---
Problem List (1) Debility Status: Acute (2) Pneumoperitoneum Status: Acute (3) Perforated diverticulum Status: Acute (4) Diverticular disease of intestine with perforation and abscess Status: Acute (5) Sigmoid diverticulitis Status: Acute (6) Coronary artery disease Status: Chronic (7) Hiatal hernia Status: Chronic (8) Alzheimer disease Status: Chronic (9) BPH (benign prostatic hyperplasia) Status: Chronic (10) Diabetes mellitus Status: Chronic (11) HTN (hypertension) Status: Chronic History of Present Illness Date of Admission: 07/10/19 Chief Complaint: Here for rehabilitation, strengthening, prior to discharge home with . The patient is a 79 year old Male with below past medical history presented to [facility] Emergency Department 07/03/2019 with abdominal pain. 07/03/2019 EKG sinus rhythm with 1st degree AV block, nonspecific ST&T wave abnormality. 07/03/2019 CT A/P pneumoperitoneum, multifocal diverticulitis, enlarged prostate, left kidney mass. Abdominal pain x 1 day, constipated, nausea, vomiting. Positive urinary retention. CBC okay, Cr 1.67 baseline, BUN 30. Labetalol, Zofran, IV Fluids given. Zosyn, Fentanyl given. Perforated diverticulitis. Recommend transfer to [facility]. 07/03/2019 Admit to [facility]. NPO, 2 Liters IV fluids bolus, follow lactic acid. Zosyn IV. Pneumoperitoneum with abscess formation. Patient underwent exploratory laparotomy with resection of rectosigmoid colon, End colostomy. 07/06/2019 Patient unresponsive, Patient recovered spontaneously. 07/10/2019 Admit to TCU with debility, here for rehabilitation, strengthening, prior to discharge home with spouse. Past Medical History Past Medical History (Chronic Problems): Chronic Problems Coronary artery disease (Chronic) Hiatal hernia (Chronic) Alzheimer disease (Chronic) BPH (benign prostatic hyperplasia) (Chronic) Diabetes mellitus (Chronic) Stenosis of esophagus (Chronic) HTN (hypertension) (Chronic) HLD (hyperlipidemia) (Chronic) Coronary atherosclerosis of [place] coronary artery (Chronic) Hx of CABG (Chronic) Allergies morphine Allergy (Verified 02/13/18 14:03) Itching Home Medications: Ambulatory Orders Medication Instructions Recorded Aspirin 81 mg PO DAILY@0800 11/11/13 Atorvastatin Calcium 80 mg PO DAILY 02/13/18 Chlorthalidone 12.5 mg PO DAILY 02/13/18 Cholecalciferol (Vitamin D3) 2,000 unit PO DAILY 02/13/18 [Vitamin D3] Finasteride [Proscar] 5 mg PO DAILY 02/13/18 Pantoprazole Sodium [Protonix] 40 mg PO DAILY 02/13/18 Sertraline HCl [Zoloft] 50 mg PO DAILY 02/13/18 Cyanocobalamin (Vitamin B-12) 1,000 mcg PO DAILY 07/03/19 [B-12] Donepezil HCl [Aricept] 5 mg PO QHS 07/03/19 Ezetimibe [Zetia] 10 mg PO DAILY 07/03/19 Lisinopril [Zestril] 40 mg PO DAILY 07/03/19 Terazosin HCl 10 mg PO DAILY 07/03/19 Acetaminophen [Tylenol Extra 1,000 mg PO Q6H PRN PRN 07/10/19 Strength] Polyethylene Glycol 3350 [Miralax] 17 gm PO DAILY 07/10/19 Surgical History: coronary bypass surgery, - - Exploratory Laparotomy with Beatriz's procedure. Lives: Spouse/ Significant Other Smoking Status: Former smoker Tobacco Use: Non-smoker Alcohol: Occasional Drugs: None - *Family History Maternal History Items: No pertinent history Paternal History Items: No pertinent history Review of Systems Constitutional: Denies: Chills, Fever, Weight Change HEENT: Denies: Head Aches, Sinus Congestion, Sinus Drainage Cardiovascular: Denies: Chest Pain, Palpitations Respiratory: Denies: Cough, Shortness of breath at rest, Sputum production Gastrointestinal: Denies: Abdominal Pain, Nausea, Vomiting Genitourinary: Denies: Dysuria Musculoskeletal: Denies: Joint Pain, Joint Tenderness Skin: Denies: Rash, Wounds Neurological: Denies: Numbness, Tingling, Focal weakness Psychiatric: Denies: Anxiety, Depression, Homicidal Ideations, Suicidal Ideations Hematologic/ Lymphatic: Denies: Easy Bruising, Easy Bleeding VTE Information - Inpt Only VTE Present on Admission: No VTE Mechan Device Prophylaxis: Knee High EMMANUEL Hose VTE Pharm Prophylaxis ordered?: Yes Patient Problems: Active and Suspected Problems Debility (Acute) Pneumoperitoneum (Acute) Perforated diverticulum (Acute) Diverticular disease of intestine with perforation and abscess (Acute) Sigmoid diverticulitis (Acute) - Physical Exam General: Alert, Oriented x3, Cooperative HEENT: Atraumatic, PERRLA, EOMI, Normocephalic Neck: Supple, No JVD, Negative Carotid Bruits Lungs: Clear to auscultation, Normal air movement Cardiovascular: Regular rate, No murmurs Abdomen: Bowel Sounds Present, Soft, Non Tender, - - Midline incision inflamed, tender. Colostomy present. Extremities: No edema, Capillary Refill Less than 3 Seconds Skin: No rashes, No breakdown Musculoskeletal: No Tenderness to Palpation of Joints or Extremities Neurological: Cranial nerves II-XII grossly intact Psych/Mental Status: Normal Affect, Appropriate Vital Signs Temp Pulse Resp BP Pulse Ox 98.2 F 75 18 136/51 H 96 07/10/19 15:57 07/10/19 15:57 07/10/19 15:57 07/10/19 15:57 07/10/19 15:57 Oxygen Delivery Method Room Air Body Mass Index (BMI) 26.7 Assessment/Plan All Active Problems Debility (Acute) Pneumoperitoneum (Acute) Perforated diverticulum (Acute) Diverticular disease of intestine with perforation and abscess (Acute) Sigmoid diverticulitis (Acute) 79 year old male with below past medical history hospitalized for pneumoperitoneum secondary to perforated diverticulitis with abscess, underwent exploratory laparotomy with Beatriz's procedure, admitted to TCU with debility, here for rehabilitation, strengthening, prior to discharge home with spouse. * Debility - PT/OT. * Pain - Tylenol 1000MG Q6H PRN mild pain, Oxycodone 2.5MG Q4H PRN moderate pain. * Bowel - Miralax 17GM daily, Senna/colace 1 tablet BID, Dulcolax 10MG daily PRN. * Pneumonia vaccination - Administer Prevnar 13 and/or Pneumovax 23 as necessary. * DVT prophylaxis - Lovenox 30MG SC daily. * Coronary artery disease - ?beta evonne, Lisinopril 40MG daily, Aspirin 81MG daily. * Hyperlipidemia - Atorvastatin 80MG QHS, Zetia 10MG daily. * Hypertension - Lisinopril 40MG daily, Chlorthalidone 12.5MG daily. * Vitamin D deficiency - D3 2000IU daily. * Vitamin B12 deficiency - B12 1000MCG daily. * Alzheimer's Disease - Donepezil 5MG QHS. * BPH - Finasteride 5MG daily, Doxazosin 8MG daily. * GERD - Pantoprazole 40MG daily. * Depression - Sertraline 50MG daily. * Incision cellulitis - Keflex 500MG BID x 7 days, Doxycycline 100MG BID x 7 days.
[2019-07-10 20:15] VITALS: PULSE 77
[2019-07-10 20:32] VITALS: BP 144/55; PULSE 76; RESP 16; TEMP 36.6; O2SAT 93
[2019-07-10] MEDS: Senna/Docusate Sodium 1 Tablet PO (20:33)
[2019-07-10] MEDS: Donepezil HCl 5 MG Tablet PO (20:34)
[2019-07-10] MEDS: NYSTATIN 500,000 UNIT/5 ML UDC 500000 UNIT PO (22:42)
[2019-07-10 23:11] VITALS: BMI 25.4
[2019-07-11] MEDS: Glucerna Shake 120 ML LIQUID PO ×3 (05:19→20:38)
[2019-07-11] MEDS: Menthol/Lanolin/Calamine/Znox 113 GM Tube 1 APPLIC TOPICAL ×2 (05:20→20:40)
[2019-07-11] MEDS: Nystatin Powder 15gm Bottle 1 APPLIC TOPICAL ×2 (05:21→20:40)
[2019-07-11] MEDS: NYSTATIN 500,000 UNIT/5 ML UDC 500000 UNIT PO ×4 (05:33→20:38)
[2019-07-11] MEDS: Enoxaparin 30 MG/0.3 ML Syringe SC (05:33)
[2019-07-11] MEDS: Polyethylene Glycol 3350 17 GM PACKET PO (05:33)
[2019-07-11] MEDS: Lisinopril 40 MG Tablet PO (05:34)
[2019-07-11] MEDS: Cyanocobalamin 500 MCG Tablet 1000 MCG PO (05:34)
[2019-07-11] MEDS: Sertraline 50 MG Tablet PO (05:34)
[2019-07-11] MEDS: Ezetimibe 10 MG Tablet PO (05:34)
[2019-07-11] MEDS: Atorvastatin Calcium 80 MG Tablet PO (05:35)
[2019-07-11] MEDS: Senna/Docusate Sodium 1 Tablet PO ×2 (05:35→18:16)
[2019-07-11] MEDS: Chlorthalidone 50 MG Tablet 12.5 MG PO (05:35)
[2019-07-11] MEDS: Finasteride 5 MG Tablet PO (05:36)
[2019-07-11] MEDS: Pantoprazole Sodium 40 MG Tablet PO (05:36)
[2019-07-11] MEDS: Doxazosin 4 MG Tablet 8 MG PO (05:36)
[2019-07-11 06:33] LABS: Absolute Lymphocyte Count 0.99 X10^3/uL (0.83-4.51); Absolute Neutrophil Count 6.7 X10^3/uL (2.0-7.7); Basophil# 0.01 X10^3/uL; Basophil% 0.1 % (0-1); Eosinophil# 0.46 X10^3/uL; Eosinophils% 5.2 % (0-5); Hematocrit 36.6 % (40-54); Lymphocyte # 0.99 X10^3/ul (4.0); Lymphocyte % 11.1 % (19-41); Mean Corp Hgb Conc 32.8 g/dL (32-36); Mean Corpuscular Hgb 27.4 pg (27.0-32.0); Mean Corpuscular Volume 83.6 fL (80-94); Monocyte# 0.62 X10^3/uL; NRBC Flagged by Analyzer 0 % (0-5); Neutrophil # 6.71 X10^3/uL (2.7-7.7); Neutrophil % 75.6 % (47-70); Platelet Count 220 K/mm3 (150-450); RBC Distribution Width CV 13.9 % (11.6-14.6); RBC Distribution Width SD 42.4 fl (35.1-43.9); Red Blood Count 4.38 M/mm3 (4.6-6.2); White Blood Count 8.9 K/mm3 (4.4-11.0)
[2019-07-11 06:54] LABS: Anion Gap 10 (5-15); BUN 33 mg/dL (7-18); BUN/Creat Ratio 23.2 RATIO (10-20); Calcium,Total 8.1 mg/dL (8.5-10.1); Chloride 110 mmol/L (98-107); Creatinine, Serum 1.42 mg/dL (0.70-1.30); EST Glomerular Filtration Rate 51 mL/min (>60); Est Glom Filt Rate - Afr Amer 62 mL/min (>60); Estimated Creatinine Clearance 39.47 ml/min; Glucose 107 mg/dL (74-106); Potassium 3.8 mmol/L (3.5-5.1); Sodium Level 141 mmol/L (136-145)
[2019-07-11] MEDS: Aspirin 81 MG TAB.CHEW PO (08:24)
--- NOTE | 2019-07-11 10:21 | NURSING ---
Found up walking around in room. Knew he was in [facility] but was confused otherwise. Wants to leave and come back to tomorrow. Pt's colostomy bag was full and leaking around edges. This nurse will apply new bag. pt is back in bed and cleaned up. New gown and pants on.
[2019-07-11] MEDS: Tuberculin,Purif.prot.deriv. 50 TU/ML Vial 5 ML ID (12:26)
--- NOTE | 2019-07-11 13:16 | NURSING ---
went outside via WC with several family members. Just got back and is painful. Will medicate.
[2019-07-11] MEDS: oxyCODONE 5 MG Tablet 2.5 MG PO (13:18)
[2019-07-11 15:30] VITALS: BP 140/50; PULSE 74; RESP 20; TEMP 37; O2SAT 94
--- NOTE | 2019-07-11 15:42 | NURSING ---
This nurse is aware of Vital Signs that were recently obtained by Carey LAMAS
--- NOTE | 2019-07-11 15:59 | NURSING ---
Family informed this nurse that they do not want him to have anymore Oxycodone b/c patient had it at another facility prior to coming to TCU and it made him more confused and even the low dose of 2.5mg family thinks it made him worse.
[2019-07-11] MEDS: Acetaminophen 500 MG Tablet 1000 MG PO (18:19)
[2019-07-11] MEDS: Donepezil HCl 5 MG Tablet PO (20:40)
--- NOTE | 2019-07-11 22:15 | NURSING ---
1999- pt's daughter notified staff colostomy site was leaking. noted to be leaking a large amount of liquid brown stool. appliance removed and bed bath given. surgical incisions cleansed with sterile saline. mepilex applied to midline incision due to colostomy appliance covering incision and not sticking. wound consult is in place. DSD applied to lap sites. midline incision noted to have erythema and sanguineous drainage. pt denies pain when this RN palpated site. Pt remains A&Ox1. Bed alarm on and functioning. RT in to set up BiPap for HS use.
[2019-07-12 05:14] VITALS: BP 143/54; PULSE 80; TEMP 36.8
[2019-07-12] MEDS: Doxazosin 4 MG Tablet 8 MG PO (05:15)
[2019-07-12] MEDS: Pantoprazole Sodium 40 MG Tablet PO (05:15)
[2019-07-12] MEDS: Atorvastatin Calcium 80 MG Tablet PO (05:15)
[2019-07-12] MEDS: Enoxaparin 30 MG/0.3 ML Syringe SC (05:15)
[2019-07-12] MEDS: Glucerna Shake 120 ML LIQUID PO ×3 (05:15→21:02)
[2019-07-12] MEDS: Cyanocobalamin 500 MCG Tablet 1000 MCG PO (05:15)
[2019-07-12] MEDS: Chlorthalidone 50 MG Tablet 12.5 MG PO (05:16)
[2019-07-12] MEDS: Finasteride 5 MG Tablet PO (05:17)
[2019-07-12] MEDS: NYSTATIN 500,000 UNIT/5 ML UDC 500000 UNIT PO ×4 (05:17→21:03)
[2019-07-12] MEDS: Nystatin Powder 15gm Bottle 1 APPLIC TOPICAL ×2 (05:17→21:03)
[2019-07-12] MEDS: Menthol/Lanolin/Calamine/Znox 113 GM Tube 1 APPLIC TOPICAL ×2 (05:17→21:03)
[2019-07-12] MEDS: Sertraline 50 MG Tablet PO (05:18)
[2019-07-12] MEDS: Lisinopril 40 MG Tablet PO (05:18)
[2019-07-12] MEDS: Ezetimibe 10 MG Tablet PO (05:18)
[2019-07-12] MEDS: Aspirin 81 MG TAB.CHEW PO (08:14)
--- NOTE | 2019-07-12 10:45 | NURSING ---
called to room by therapy. pt colostomy leaking liquid brown stool. pt also had small liquid brown stool rectally. assisted to bed. dressing to mid abd incision removed and colostomy appliance removed. skin cleansed. krista chavez in room and called ciara wound rn to assess. new appliance applied per ciara wound rn. no drainage noted from mid abd incision, left open to air at this time and will monitor. pt tolerated well.
[2019-07-12] MEDS: Doxycycline 100 MG CAPSULE PO ×2 (11:04→18:04)
[2019-07-12] MEDS: Cephalexin 500 MG Capsule PO ×2 (11:04→18:04)
[2019-07-12] MEDS: Iron Polysaccharide Complex 150 MG CAPSULE PO (11:04)
--- NOTE | 2019-07-12 11:23 | CASEMGMT ---
Insurance: continued stay review sent to [place] through secure email this day. auth #[id number]
--- NOTE | 2019-07-12 11:33 | NURSING ---
Pt is s/p exploratory laparotomy with resection of the rectosigmoid colon with end colostomy for diverticulitis. the ostomy appliance had been leaking. nursing had removed appliance and was cleansed patient up when in the room. the stoma is to the left lower abdomen and sits just at the skin level. there is some redness noted to the peristomal skin most likely from the leaks and the cleaning. will try a smaller flange to avoid the surgical incision. stoma is beefy red and moist. slightly oval in shape. applied a new 2 piece flat [place] appliance with a small amount of stoma paste. pt will most likely need a convex appliance in the future. do not like to use the convex appliance to start to try to avoid mucocutaneous separation. will monitor closely. would recommend the appliance be changed at least every 4 days until peristomal skin is improved.
--- NOTE | 2019-07-12 12:08 | NURSING ---
wound/stoma photo: abdomen
--- NOTE | 2019-07-12 13:45 | NURSING ---
after working with physcial therapy, colostomy noted to be leaking liquid brown stool, appliance removed, skin cleansed and new appliance applied. mid abd incision remains open to air with no drainage noted.
--- NOTE | 2019-07-12 14:45 | NURSING ---
while working with occupational therapy, colostomy started to leak liquid brown stool. ciara campbell rn notified and she will be up to see pt.
--- NOTE | 2019-07-12 15:00 | NURSING ---
ciara campbell rn into see pt. convex colostomy appliance applied per her. will cont to monitor.
[2019-07-12 16:00] VITALS: BP 136/54; PULSE 77; RESP 20; TEMP 37.1; O2SAT 96
[2019-07-12] MEDS: Acetaminophen 500 MG Tablet 1000 MG PO (21:03)
[2019-07-12] MEDS: Donepezil HCl 5 MG Tablet PO (21:03)
--- NOTE | 2019-07-12 21:05 | NURSING ---
Addendum entered by Sandra Marrero 07/13/19 06:48: Small amount of stool noted leaking out the side of colostomy appliance onto abd incision. Old appliance removed. Stoma area and incision cleansed with NS. Skin protectant applied around stoma. Adaptic with 2 4x4 gauze applied to abd incision d/t small amount of drainage noted. New colostomy appliance applied. Will update wound nurse. Original Note: This nurse called to by [employer] d/t colostomy bag leaking. Stool noted to be leaking on incision. Appliance and colostomy bag removed. Incision cleansed with NS and a moderate amount of Serosanguineous noted to mid incision. Area cleansed around stoma site and a new appliance was applied. Adaptic and 2 4x4 were applied to mid incision site. Pt requesting Tylenol which was provided. Resting in bed, call light in reach and PA on.
[2019-07-13] MEDS: Pantoprazole Sodium 40 MG Tablet PO (06:08)
[2019-07-13] MEDS: Sertraline 50 MG Tablet PO (06:08)
[2019-07-13] MEDS: Cephalexin 500 MG Capsule PO ×2 (06:08→17:14)
[2019-07-13] MEDS: Finasteride 5 MG Tablet PO (06:08)
[2019-07-13] MEDS: Enoxaparin 30 MG/0.3 ML Syringe SC (06:08)
[2019-07-13] MEDS: Atorvastatin Calcium 80 MG Tablet PO (06:08)
[2019-07-13] MEDS: Chlorthalidone 50 MG Tablet 12.5 MG PO (06:08)
[2019-07-13] MEDS: Lisinopril 40 MG Tablet PO (06:08)
[2019-07-13] MEDS: Cyanocobalamin 500 MCG Tablet 1000 MCG PO (06:08)
[2019-07-13] MEDS: Doxycycline 100 MG CAPSULE PO ×2 (06:08→17:14)
[2019-07-13] MEDS: NYSTATIN 500,000 UNIT/5 ML UDC 500000 UNIT PO ×4 (06:08→19:41)
[2019-07-13] MEDS: Ezetimibe 10 MG Tablet PO (06:08)
[2019-07-13] MEDS: Menthol/Lanolin/Calamine/Znox 113 GM Tube 1 APPLIC TOPICAL ×2 (06:12→19:42)
[2019-07-13] MEDS: Nystatin Powder 15gm Bottle 1 APPLIC TOPICAL ×2 (06:12→19:42)
[2019-07-13] MEDS: Doxazosin 4 MG Tablet 8 MG PO (06:13)
[2019-07-13] MEDS: Iron Polysaccharide Complex 150 MG CAPSULE PO (08:18)
[2019-07-13] MEDS: Aspirin 81 MG TAB.CHEW PO (08:18)
--- NOTE | 2019-07-13 09:32 | NURSING ---
Per therapy pt has open area to right upper thigh. Scab noted to have come off. Area cleansed with NS. Adaptic and 4x4 applied, secured with tape. Reported to Swapna URIBE.
[2019-07-13] MEDS: Glucerna Shake 120 ML LIQUID PO ×2 (11:43→17:14)
--- NOTE | 2019-07-13 15:59 | NURSING ---
Small amount of liquid stool leaking out of colostomy appliance onto abdominal incision. This nurse updated Swapna URIBE and Joanne URIBE. Both in which assisted with colostomy change. Old colostomy appliance removed. Peristomal skin and incision cleansed with NS. Redness and tenderness noted to area. New colostomy appliance applied. Adaptic and 2x2 gauze applied to abdominal incision d/t small amount of serosanguinous drainage. Wound nurse Eva aware and will see pt tomorrow. Pt tolerated well.
[2019-07-13 16:00] VITALS: BP 134/54; PULSE 66; RESP 18; TEMP 36.8; O2SAT 97
--- NOTE | 2019-07-13 17:02 | CASEMGMT ---
Insurance: Next continued stay review due 07/15/19. auth # [id number]
[2019-07-13] MEDS: Donepezil HCl 5 MG Tablet PO (19:41)
[2019-07-14] MEDS: Glucerna Shake 120 ML LIQUID PO ×3 (04:52→17:19)
[2019-07-14] MEDS: Finasteride 5 MG Tablet PO (04:53)
[2019-07-14] MEDS: Cyanocobalamin 500 MCG Tablet 1000 MCG PO (04:53)
[2019-07-14] MEDS: Ezetimibe 10 MG Tablet PO (04:53)
[2019-07-14] MEDS: Sertraline 50 MG Tablet PO (04:53)
[2019-07-14] MEDS: Atorvastatin Calcium 80 MG Tablet PO (04:53)
[2019-07-14] MEDS: Pantoprazole Sodium 40 MG Tablet PO (04:53)
[2019-07-14] MEDS: Cephalexin 500 MG Capsule PO ×2 (04:53→17:19)
[2019-07-14] MEDS: Chlorthalidone 50 MG Tablet 12.5 MG PO (04:53)
[2019-07-14] MEDS: NYSTATIN 500,000 UNIT/5 ML UDC 500000 UNIT PO ×4 (04:53→19:45)
[2019-07-14] MEDS: Lisinopril 40 MG Tablet PO (04:53)
[2019-07-14] MEDS: Doxazosin 4 MG Tablet 8 MG PO (04:53)
[2019-07-14] MEDS: Doxycycline 100 MG CAPSULE PO ×2 (04:54→17:19)
[2019-07-14] MEDS: Enoxaparin 30 MG/0.3 ML Syringe SC (04:54)
[2019-07-14] MEDS: Nystatin Powder 15gm Bottle 1 APPLIC TOPICAL ×2 (05:12→19:54)
[2019-07-14] MEDS: Menthol/Lanolin/Calamine/Znox 113 GM Tube 1 APPLIC TOPICAL ×2 (05:12→19:54)
--- NOTE | 2019-07-14 05:17 | NURSING ---
Pt assisted with urinal. Colostomy noted to be leaking out on abdominal incision. Appliance removed and dressing removed from incisional site. Skin noted to be red and irritated. Incision with small amount of serosanguineous drainage. Incision cleansed with NS and adaptic with 4x4 gauze applied. Area around stoma cleansed with warm water. New appliance applied. Pt tolerated well.
[2019-07-14] MEDS: Iron Polysaccharide Complex 150 MG CAPSULE PO (08:12)
[2019-07-14] MEDS: Aspirin 81 MG TAB.CHEW PO (08:12)
--- NOTE | 2019-07-14 10:06 | CASEMGMT ---
Social Work IDT met with patient, , and two daughters for care plan meeting. Discussed patient's progress in therapy. Pt is max assist for LE ADLs, 5 steps at CGA, walking up to 150 ft with FWW, min to mod assist for bathing. Explained insurance coverage and NRD is 07/15, continued stay is not guaranteed. and two daughters are able to assist at home. Nursing with begin family training with new colostomy. Will refer to [facility] upon DC. Provided resources for VA application, [employer] and discussed needed DME at DC. Will await insurance outcome an pt will continue ti work with therapy. Will continue to follow. Apoorva Chua, [employer]
[2019-07-14] MEDS: Acetaminophen 500 MG Tablet 1000 MG PO (12:46)
--- NOTE | 2019-07-14 13:51 | NURSING ---
wound nurse here changing colostomy appliance, applied an opsite to RT abdomen vertical incision, then halihesive to crease to medial stoma surronding area to prevent leakage to incision.
--- NOTE | 2019-07-14 13:54 | NURSING ---
In to assess ostomy appliance and abdominal incision. the abdominal dressing with moderate drainage. unable to tell if it is just drainage or if there is leakage from the ostomy appliance. dressing and appliance removed. there was a small leak noted again in the same area. patient has a small crease in the medial abdominal fold just to the right of the stoma. stoma sits right at skin level and slightly below the skin level in this fold. the peristomal skin is slightly less reddened today. still some mild redness noted to the surgical incision. no purulent drainage noted. no odor noted. no family is present in room to observe ostomy appliance change. had observed appliance change on Friday. stated she had also been shown prior to admission to TCU. would still recommend home health at discharge as well. cleansed incision and peristomal skin with Dial soap and water. pat dry. placed an Opsite tegaderm dressing along incision. applied a new 2 piece flat Alicia appliance with small amount of stoma paste. Did place Hollihesive to the medial crease prior to placing the ostomy appliance. pt tolerated well. will continue to educate family as able.
--- NOTE | 2019-07-14 14:19 | PHA.CONS_ITS ---
<KaciSav harperi - Last Filed: 07/14/19 14:19> Progress Note - Pharmacy Subjective: TCU Admission Objective: Allergies morphine Allergy (Verified 02/13/18 14:03) Itching Current Medications Generic Name Dose Route Start Last Admin Trade Name Freq PRN Reason Stop Dose Admin Acetaminophen 1,000 mg 07/10/19 16:52 07/14/19 12:46 Tylenol PO 1,000 mg Q6H PRN PRN Administration MILD PAIN (1-3/10) Aspirin 81 mg 07/11/19 08:00 07/14/19 08:12 Aspirin, Baby PO 81 mg DAILY@0800 SAI Administration Atorvastatin Calcium 80 mg 07/11/19 06:00 07/14/19 04:53 Lipitor PO 80 mg DAILY SAI Administration Bisacodyl 10 mg 07/10/19 17:03 Dulcolax PO DAILY PRN Constipation Calamine/Phenol 1 applic 07/11/19 06:00 07/14/19 05:12 Calmoseptine Ointment TOPICAL 1 applicatio 0600,2200 SAI Administration Protocol Cephalexin 500 mg 07/12/19 10:00 07/14/19 04:53 Keflex PO 07/19/19 10:01 500 mg Q12 SAI Administration Chlorthalidone 12.5 mg 07/11/19 06:00 07/14/19 04:53 Hygroton PO 12.5 mg DAILY SAI Administration Cholecalciferol 2,000 unit 07/11/19 06:00 07/14/19 04:53 Vitamin D PO 2,000 unit DAILY SAI Administration Cyanocobalamin 1,000 mcg 07/11/19 06:00 07/14/19 04:53 Vitamin B12 PO 1,000 mcg DAILY SAI Administration Donepezil HCl 5 mg 07/10/19 22:00 07/13/19 19:41 Aricept PO 5 mg QHS SAI Administration Doxazosin Mesylate 8 mg 07/11/19 06:00 07/14/19 04:53 Cardura PO 8 mg DAILY SAI Administration Doxycycline Monohydrate 100 mg 07/12/19 10:00 07/14/19 04:54 Doxycycline PO 07/19/19 10:01 100 mg BID SAI Administration Ezetimibe 10 mg 07/11/19 06:00 07/14/19 04:53 Zetia PO 10 mg DAILY SAI Administration Enoxaparin Sodium 30 mg 07/11/19 06:00 07/14/19 04:54 Lovenox SC 30 mg DAILY@0600 SAI Administration Finasteride 5 mg 07/11/19 06:00 07/14/19 04:53 Proscar PO 5 mg DAILY SAI Administration Lisinopril 40 mg 07/11/19 06:00 07/14/19 04:53 Zestril PO 40 mg DAILY SAI Administration Nutritional Formula (Lactose Free) 120 ml 07/11/19 06:00 07/14/19 11:45 Glucerna Shake PO 120 ml 4X/DAY SAI Administration Nystatin 500,000 unit 07/10/19 22:00 07/14/19 11:45 Nystatin PO 07/20/19 22:01 500,000 unit 4X/DAY SAI Administration Nystatin 1 applic 07/11/19 06:00 07/14/19 05:12 Mycostatin Powder TOPICAL 1 applicatio 0600,2200 SAI Administration Protocol Pantoprazole Sodium 40 mg 07/11/19 06:00 07/14/19 04:53 Protonix PO 40 mg DAILY SAI Administration Polysaccharide Iron Complex 150 mg 07/12/19 08:00 07/14/19 08:12 Ferrex 150 PO 150 mg DAILYCM SAI Administration Sertraline HCl 50 mg 07/11/19 06:00 07/14/19 04:53 Zoloft PO 50 mg DAILY SAI Administration Tuberculin PPD 5 tu 07/18/19 10:00 Tubersol, Aplisol, Ppd ID 07/18/19 10:01 X1 ONE Problem List Debility (Acute) Pneumoperitoneum (Acute) Perforated diverticulum (Acute) Diverticular disease of intestine with perforation and abscess (Acute) Sigmoid diverticulitis (Acute) Coronary artery disease (Chronic) Hiatal hernia (Chronic) Alzheimer disease (Chronic) BPH (benign prostatic hyperplasia) (Chronic) Diabetes mellitus (Chronic) Vital Signs Temp Pulse Resp BP Pulse Ox 98.2 F 66 18 134/54 H 97 07/13/19 16:00 07/13/19 16:00 07/13/19 16:00 07/13/19 16:00 07/13/19 16:00 Oxygen Delivery Method Room Air Weight: 75.296 kg Body Mass Index (BMI) 25.4 Sodium 141 mmol/L (136-145) 07/11/19 05:35 Potassium 3.8 mmol/L (3.5-5.1) 07/11/19 05:35 Chloride 110 mmol/L (98-107) H 07/11/19 05:35 Carbon Dioxide 21.0 mmol/L (21.0-32.0) 07/11/19 05:35 Anion Gap 10 (5-15) 07/11/19 05:35 BUN 33 mg/dL (7-18) H 07/11/19 05:35 Creatinine 1.42 mg/dL (0.70-1.30) H 07/11/19 05:35 Est GFR (MDRD) Af Amer 62 mL/min (>60) 07/11/19 05:35 Est GFR (MDRD) Non-Af 51 mL/min (>60) L 07/11/19 05:35 BUN/Creatinine Ratio 23.2 RATIO (10-20) H 07/11/19 05:35 Glucose 107 mg/dL (74-106) H 07/11/19 05:35 Assessment/Plan: 1. Pain: acetaminophen 1000mg PO Q6H PRN mild pain (1-310). Please continue to monitor for increased pain. 2. Incision cellulitis: cephalexin 500mg PO BID (thru 07/19/19) and doxycycline 100mg PO BID (thru 07/19/19). Please continue to monitor renal function and for S/S of infection. 3. Coronary artery disease/hypertension: lisinopril 40mg PO daily, ch lorthalidone 12.5mg PO daily, aspirin 81mg PO daily. Please continue to monitor BP, electrolytes, renal function and S/S of bleeding. 4. Hyperlipidemia: atorvastatin 80mg PO QHS and ezetimibe 10mg PO daily. Lipid panel from this year in chart. LFTs WNL and appropriate for continued use. Please continue to monitor for muscle pain. 5. Alzheimer's Disease: donepezil 5mg PO QHS. Please continue to monitor for increased confusion. 6. Benign Prostatic Hyperplasia: finasteride 5mg PO daily and doxazosin 8mg PO daily. Please continue to monitor for dizziness. *7. DVT prophylaxis: enoxaparin 30mg SC daily. Based on CrCl 41 mL/min, please consider increasing dose to 40mg daily. Please continue to monitor renal function, platelets, S/S of bleeding. 8. GERD: pantoprazole 40mg PO daily. Please continue to monitor for S/S of GERD. *9. Vitamin deficiencies: cholecalciferol 2000units PO daily and cyanocobalamin 1000mcg PO daily. Vitamin B12 and vitamin D levels are from 2016 and 2017 respectively. Please consider ordering levels now and then annually as clinically appropriate. Psychotropic Medications: 1. Depression: sertraline 50mg PO daily. Please consider GDR 01/06. *Unnecessary Medications: Ferrex 150mg PO DAILYCM. I could not find an indication for Ferrex. Please consider discontinuing the medication if clinically appropriate. Bowel Regimen: Bisacodyl 10mg PO daily PRN constipation. Please continue to monitor for constipation and PRN usage. Date of Note:: 07/14/19 - Provider Comments Provider responsibility: Provider responsible to enter orders to implement recommendations <Olman Marin Chi - Last Filed: 07/14/19 17:03> Progress Note - Pharmacy Subjective: [] Objective: Allergies morphine Allergy (Verified 02/13/18 14:03) Itching Current Medications Generic Name Dose Route Start Last Admin Trade Name Freq PRN Reason Stop Dose Admin Acetaminophen 1,000 mg 07/10/19 16:52 07/14/19 12:46 Tylenol PO 1,000 mg Q6H PRN PRN Administration MILD PAIN (1-3/10) Aspirin 81 mg 07/11/19 08:00 07/14/19 08:12 Aspirin, Baby PO 81 mg DAILY@0800 SAI Administration Atorvastatin Calcium 80 mg 07/11/19 06:00 07/14/19 04:53 Lipitor PO 80 mg DAILY SAI Administration Bisacodyl 10 mg 07/10/19 17:03 Dulcolax PO DAILY PRN Constipation Calamine/Phenol 1 applic 07/11/19 06:00 07/14/19 05:12 Calmoseptine Ointment TOPICAL 1 applicatio 0600,2200 SAI Administration Protocol Cephalexin 500 mg 07/12/19 10:00 07/14/19 04:53 Keflex PO 07/19/19 10:01 500 mg Q12 SAI Administration Chlorthalidone 12.5 mg 07/11/19 06:00 07/14/19 04:53 Hygroton PO 12.5 mg DAILY SAI Administration Cholecalciferol 2,000 unit 07/11/19 06:00 07/14/19 04:53 Vitamin D PO 2,000 unit DAILY SAI Administration Cyanocobalamin 1,000 mcg 07/11/19 06:00 07/14/19 04:53 Vitamin B12 PO 1,000 mcg DAILY SAI Administration Donepezil HCl 5 mg 07/10/19 22:00 07/13/19 19:41 Aricept PO 5 mg QHS SAI Administration Doxazosin Mesylate 8 mg 07/11/19 06:00 07/14/19 04:53 Cardura PO 8 mg DAILY SAI Administration Doxycycline Monohydrate 100 mg 07/12/19 10:00 07/14/19 04:54 Doxycycline PO 07/19/19 10:01 100 mg BID SAI Administration Ezetimibe 10 mg 07/11/19 06:00 07/14/19 04:53 Zetia PO 10 mg DAILY SAI Administration Enoxaparin Sodium 30 mg 07/11/19 06:00 07/14/19 04:54 Lovenox SC 30 mg DAILY@0600 SAI Administration Finasteride 5 mg 07/11/19 06:00 07/14/19 04:53 Proscar PO 5 mg DAILY SAI Administration Lisinopril 40 mg 07/11/19 06:00 07/14/19 04:53 Zestril PO 40 mg DAILY SAI Administration Nutritional Formula (Lactose Free) 120 ml 07/11/19 06:00 07/14/19 11:45 Glucerna Shake PO 120 ml 4X/DAY SAI Administration Nystatin 500,000 unit 07/10/19 22:00 07/14/19 11:45 Nystatin PO 07/20/19 22:01 500,000 unit 4X/DAY SAI Administration Nystatin 1 applic 07/11/19 06:00 07/14/19 05:12 Mycostatin Powder TOPICAL 1 applicatio 0600,2200 SAI Administration Protocol Pantoprazole Sodium 40 mg 07/11/19 06:00 07/14/19 04:53 Protonix PO 40 mg DAILY SAI Administration Polysaccharide Iron Complex 150 mg 07/12/19 08:00 07/14/19 08:12 Ferrex 150 PO 150 mg DAILYCM SAI Administration Sertraline HCl 50 mg 07/11/19 06:00 07/14/19 04:53 Zoloft PO 50 mg DAILY SAI Administration Tuberculin PPD 5 tu 07/18/19 10:00 Tubersol, Aplisol, Ppd ID 07/18/19 10:01 X1 ONE Problem List Debility (Acute) Pneumoperitoneum (Acute) Perforated diverticulum (Acute) Diverticular disease of intestine with perforation and abscess (Acute) Sigmoid diverticulitis (Acute) Coronary artery disease (Chronic) Hiatal hernia (Chronic) Alzheimer disease (Chronic) BPH (benign prostatic hyperplasia) (Chronic) Diabetes mellitus (Chronic) Vital Signs Temp Pulse Resp BP Pulse Ox 98.2 F 73 18 134/54 H 95 07/13/19 16:00 07/14/19 14:21 07/14/19 14:21 07/13/19 16:00 07/14/19 14:21 Oxygen Delivery Method Room Air Weight: 75.296 kg Body Mass Index (BMI) 25.4 Sodium 141 mmol/L (136-145) 07/11/19 05:35 Potassium 3.8 mmol/L (3.5-5.1) 07/11/19 05:35 Chloride 110 mmol/L (98-107) H 07/11/19 05:35 Carbon Dioxide 21.0 mmol/L (21.0-32.0) 07/11/19 05:35 Anion Gap 10 (5-15) 07/11/19 05:35 BUN 33 mg/dL (7-18) H 07/11/19 05:35 Creatinine 1.42 mg/dL (0.70-1.30) H 07/11/19 05:35 Est GFR (MDRD) Af Amer 62 mL/min (>60) 07/11/19 05:35 Est GFR (MDRD) Non-Af 51 mL/min (>60) L 07/11/19 05:35 BUN/Creatinine Ratio 23.2 RATIO (10-20) H 07/11/19 05:35 Glucose 107 mg/dL (74-106) H 07/11/19 05:35 Assessment/Plan: Psychotropic Medications: Unnecessary Medications: Bowel Regimen: - Provider Comments Provider responsibility: Provider responsible to enter orders to implement recommendations Provider Comments to Recommendations by Pharmacy: Agree
[2019-07-14 14:21] VITALS: PULSE 73; RESP 18; O2SAT 95
[2019-07-14 16:00] VITALS: BP 136/55; PULSE 63; RESP 18; TEMP 36.7; O2SAT 98
[2019-07-14] MEDS: Donepezil HCl 5 MG Tablet PO (19:45)
[2019-07-15] MEDS: NYSTATIN 500,000 UNIT/5 ML UDC 500000 UNIT PO ×3 (06:04→21:32)
[2019-07-15] MEDS: Chlorthalidone 50 MG Tablet 12.5 MG PO (06:04)
[2019-07-15] MEDS: Doxycycline 100 MG CAPSULE PO ×2 (06:04→17:24)
[2019-07-15] MEDS: Ezetimibe 10 MG Tablet PO (06:05)
[2019-07-15] MEDS: Pantoprazole Sodium 40 MG Tablet PO (06:05)
[2019-07-15] MEDS: Sertraline 50 MG Tablet PO (06:05)
[2019-07-15] MEDS: Menthol/Lanolin/Calamine/Znox 113 GM Tube 1 APPLIC TOPICAL ×2 (06:05→21:33)
[2019-07-15] MEDS: Finasteride 5 MG Tablet PO (06:05)
[2019-07-15] MEDS: Cyanocobalamin 500 MCG Tablet 1000 MCG PO (06:05)
[2019-07-15] MEDS: Doxazosin 4 MG Tablet 8 MG PO (06:05)
[2019-07-15] MEDS: Cephalexin 500 MG Capsule PO ×2 (06:05→17:24)
[2019-07-15] MEDS: Atorvastatin Calcium 80 MG Tablet PO (06:05)
[2019-07-15] MEDS: Lisinopril 40 MG Tablet PO (06:05)
[2019-07-15] MEDS: Nystatin Powder 15gm Bottle 1 APPLIC TOPICAL ×2 (06:06→21:32)
[2019-07-15] MEDS: Enoxaparin 30 MG/0.3 ML Syringe SC (06:07)
--- NOTE | 2019-07-15 06:51 | NURSING ---
Pt's ostomy emptied X3 during shift. Out put minimal 50cc, 40cc, and 60cc. At AM curry colin, RN noted dark shadow under oppsite and leakage on right side of drsg. 100cc removed from ostomy bag, non formed loose (applesauce consistency) Drsg and leaking ostomy removed. Stool noted on incision. Incision eleuterio and draining. Skin around stoma eleuterio. Incision cleansed with NS, patted dry. Skin around stoma cleansed and patted dry. Skin prep applied around incision and stoma. Oppsite placed over incision. New appliance placed on stoma with stoma paste. Wound nurse notified. Will continue to monitor and acces.
[2019-07-15] MEDS: Aspirin 81 MG TAB.CHEW PO (09:28)
[2019-07-15] MEDS: Iron Polysaccharide Complex 150 MG CAPSULE PO (09:28)
[2019-07-15] MEDS: Acetaminophen 500 MG Tablet 1000 MG PO (11:41)
--- NOTE | 2019-07-15 13:14 | NURSING ---
Colostomy appliance intact at this time. daughter present in room. talked with daughter about setting up a time to do more education with patient's and granddaughter on ostomy care prior to discharge home. states she will talk with her mother when she arrives. do not want to remove the ostomy appliance if not needed since skin has been so irritated, so can even educate more with a stoma model and ostomy supplies. has watched the ostomy appliance change a couple of times and there is plans for home health care at discharge.
[2019-07-15 15:15] VITALS: BP 129/51; PULSE 73; RESP 18; TEMP 36.9; O2SAT 97
--- NOTE | 2019-07-15 15:49 | CASEMGMT ---
Social Work Brief interview for mental status (BIMS) and resident mood assessment (PHQ-9) completed on this day. BIMS score 06/03. PHQ-9 score 02/13. Austyn NICKERSON, ROSA
--- NOTE | 2019-07-15 15:50 | CASEMGMT ---
Social Work Met with resident and resident spouse in room to completed Health Care Power of patent attorney documents per resident request. Health Care Power of Pediatric Social Worker documents completed. Original provided to resident and resident spouse, copy placed on resident chart. All questions answered. Austyn NICKERSON, ROSA
[2019-07-15] MEDS: Glucerna Shake 120 ML LIQUID PO ×2 (17:24→21:30)
[2019-07-15] MEDS: Donepezil HCl 5 MG Tablet PO (21:32)
[2019-07-16] MEDS: NYSTATIN 500,000 UNIT/5 ML UDC 500000 UNIT PO ×4 (04:22→21:32)
[2019-07-16] MEDS: Glucerna Shake 120 ML LIQUID PO ×3 (04:22→17:37)
[2019-07-16] MEDS: Chlorthalidone 50 MG Tablet 12.5 MG PO (04:22)
[2019-07-16] MEDS: Ezetimibe 10 MG Tablet PO (04:23)
[2019-07-16] MEDS: Sertraline 50 MG Tablet PO (04:23)
[2019-07-16] MEDS: Lisinopril 40 MG Tablet PO (04:23)
[2019-07-16] MEDS: Cephalexin 500 MG Capsule PO ×2 (04:23→17:30)
[2019-07-16] MEDS: Cyanocobalamin 500 MCG Tablet 1000 MCG PO (04:23)
[2019-07-16] MEDS: Atorvastatin Calcium 80 MG Tablet PO (04:24)
[2019-07-16] MEDS: Doxazosin 4 MG Tablet 8 MG PO (04:24)
[2019-07-16] MEDS: Doxycycline 100 MG CAPSULE PO ×2 (04:24→17:30)
[2019-07-16] MEDS: Pantoprazole Sodium 40 MG Tablet PO (04:24)
[2019-07-16] MEDS: Finasteride 5 MG Tablet PO (04:24)
[2019-07-16] MEDS: Nystatin Powder 15gm Bottle 1 APPLIC TOPICAL ×2 (04:30→21:36)
[2019-07-16] MEDS: Menthol/Lanolin/Calamine/Znox 113 GM Tube 1 APPLIC TOPICAL ×2 (05:17→21:36)
[2019-07-16] MEDS: Enoxaparin 30 MG/0.3 ML Syringe SC (05:17)
[2019-07-16] MEDS: Aspirin 81 MG TAB.CHEW PO (07:55)
[2019-07-16] MEDS: Iron Polysaccharide Complex 150 MG CAPSULE PO (07:55)
--- NOTE | 2019-07-16 08:24 | NURSING ---
TOOK PT OFF TOILET AND SEEN BRIGHT RED BLOODY MUCUS IN TOILET. HAD DARIUSRN COME TO ROOM SO HES AWARE.
[2019-07-16 09:40] VITALS: PULSE 74; RESP 18; O2SAT 99
[2019-07-16] MEDS: Acetaminophen 500 MG Tablet 1000 MG PO (09:46)
--- NOTE | 2019-07-16 10:06 | NURSING ---
THIS NURSE WENT INTO PT ROOM AND PT LEANING OVER IN CHAIR SHIVERING. ASKED PT WHAT WAS WRONG PT STATED HE WAS FREEZING. VITALS DONE,118/56,HR 75,R 18,T-97.9 TA OXYGEN 99% RA. PT VERY CONFUSED AND A/0X1. GOT PT BACK TO BED WITH HELP OF AID. PT STATED I JUST DONT FEEL GOOD. LUNGS CLEAR,PT HAS COUGH NON PRODUCTIVE AT THIS TIME. PT STATED HIS HEAD FEELS FUZZY AND NOSE IS STUFFY. WARM BLANKET GIVEN. REPORTED TO JOJO MCCOY
[2019-07-16 10:14] VITALS: BP 118/56; PULSE 75; RESP 18; TEMP 36.6; O2SAT 99
--- NOTE | 2019-07-16 10:18 | NURSING ---
AID FOUND A WALLET IN PT WHEEL CHAIR AND GAVE TO THIS NURSE. LOOKED AT FOUND IT WAS PT DAUGHTERS. THIS NURSE CALLED DAUGHTER AND LEFT MESSAGE. THIS NURSE ALSO FOUND PT WALLET IN WHEEL CHAIR. LOCKED BOTH WALLETS UP. PT CAME IN AND TOOK BOTH WALLETS HOME. REPORTED TO JOJO MCCOY
--- NOTE | 2019-07-16 12:06 | CASEMGMT ---
Social Work Nursing and therapy reporting pt is exhibiting increased confusion and fatigue this morning. Nursing reports pt did not sleep well last night and developing some other medical issues. Spoke with nursing and labs will be ordered to be completed today to determine what/if further treatment is necessary. Pt requires continued monitoring and therapy tx at this time. Family is not ready for pt to DC home. Notified [facility] insurance and submitted updated clinical information. Will await outcome. Apoorva Chua, DETECTIVE CHIEF SQUEEGEE FINISHER
--- NOTE | 2019-07-16 13:14 | NURSING ---
Colostomy appliance had leaked again into the midline surgical incision. appliance had been changed earlier this am by the online merchandising coordinator RN. the dressing to the incision was covered with stool. removed the dressing and ostomy appliance. present in room as well. showed the where the stoma sinks under the skin level at the medial edge near the incision. this is where the leaks have been occurring. the peristomal skin is still slightly irritated, but improved. still some redness noted to the surgical incision. cleansed with incision and the peristomal skin with soap and water. pat dry. applied an surgical opsite dressing over the incision. placed stoma paste on the edge of the dressing near the stoma. placed a bead of paste and a small piece of Hollihesive in the abdominal crease near the incision to try to wall off the stool from leaking into the wound. MATTHEW Thomas and both present to observe. applied a 1 piece flat [place] appliance since it is more flexible. had tried a convex appliance and it still leaked. discussed the importance of keeping the appliance emptied to prevent the stool from pulling at the appliance or sitting over the stoma. educated the patient and on emptying the appliance. the patient is aware that he needs to start empyting the appliance as well. states understanding. will continue teaching with patient and family.
--- NOTE | 2019-07-16 15:31 | CASEMGMT ---
Social Work Insurance approved pt with [employer] 07/19. Notified pt, dtr and of information. They understand continued stay is not guaranteed. SW faxed VA application to [facility] to determine if pt is eligible for RECYCLING TECHNICIAN services at [place]. Will continue to follow. KRISHAN CrossW
[2019-07-16 16:00] VITALS: BP 112/42; PULSE 73; RESP 18; TEMP 36.3; O2SAT 95
[2019-07-16] MEDS: Loperamide 2 MG Capsule PO (17:37)
[2019-07-16] MEDS: Donepezil HCl 5 MG Tablet PO (21:32)
[2019-07-16 21:41] VITALS: PULSE 72; RESP 16; O2SAT 97
--- NOTE | 2019-07-16 23:35 | NURSING ---
Addendum entered by Noemy Burton 07/17/19 11:04: Dr Marin updated on rectal bleeding per report. new order to DC lovenox Addendum entered by Justyna Trevizo 07/16/19 23:45: Resident has a colostomy emptied at this time Original Note: This nurse went into resident room to assist to the toilet when we made it over to the toilet, I notice that he had mucus with bright red in attend. This nurse assessed the coccyx area when I wiped it I got some red back on the wipe. Look to see if I saw any hemorrhoid didn't notice anything at this time. Call Trent Layne in to see.
[2019-07-17] MEDS: Enoxaparin 30 MG/0.3 ML Syringe SC (06:31)
[2019-07-17] MEDS: Cephalexin 500 MG Capsule PO ×2 (06:32→17:41)
[2019-07-17] MEDS: Sertraline 50 MG Tablet PO (06:32)
[2019-07-17] MEDS: Doxazosin 4 MG Tablet 8 MG PO (06:32)
[2019-07-17] MEDS: Ezetimibe 10 MG Tablet PO (06:32)
[2019-07-17] MEDS: Lisinopril 40 MG Tablet PO (06:32)
[2019-07-17] MEDS: Atorvastatin Calcium 80 MG Tablet PO (06:32)
[2019-07-17] MEDS: Cyanocobalamin 500 MCG Tablet 1000 MCG PO (06:32)
[2019-07-17] MEDS: Doxycycline 100 MG CAPSULE PO ×2 (06:33→17:41)
[2019-07-17] MEDS: Chlorthalidone 50 MG Tablet 12.5 MG PO (06:33)
[2019-07-17] MEDS: Pantoprazole Sodium 40 MG Tablet PO (06:36)
[2019-07-17] MEDS: Finasteride 5 MG Tablet PO (06:38)
[2019-07-17] MEDS: NYSTATIN 500,000 UNIT/5 ML UDC 500000 UNIT PO ×4 (06:40→19:57)
[2019-07-17] MEDS: Nystatin Powder 15gm Bottle 1 APPLIC TOPICAL ×2 (06:40→19:59)
[2019-07-17] MEDS: Menthol/Lanolin/Calamine/Znox 113 GM Tube 1 APPLIC TOPICAL ×2 (06:41→19:59)
[2019-07-17] MEDS: Iron Polysaccharide Complex 150 MG CAPSULE PO (08:24)
[2019-07-17] MEDS: Aspirin 81 MG TAB.CHEW PO (08:24)
[2019-07-17] MEDS: Acetaminophen 500 MG Tablet 1000 MG PO (11:18)
[2019-07-17 16:00] VITALS: BP 123/55; PULSE 70; RESP 18; TEMP 36.9; O2SAT 96
[2019-07-17] MEDS: Donepezil HCl 5 MG Tablet PO (19:57)
[2019-07-18 06:27] LABS: Absolute Lymphocyte Count 1.19 X10^3/uL (0.83-4.51); Absolute Neutrophil Count 4.6 X10^3/uL (2.0-7.7); Basophil# 0.03 X10^3/uL; Basophil% 0.4 % (0-1); Eosinophil# 0.86 X10^3/uL; Eosinophils% 11.3 % (0-5); Hematocrit 32.1 % (40-54); Hemoglobin 10.1 g/dL (13.0-16.5); Lymphocyte # 1.19 X10^3/ul (4.0); Lymphocyte % 15.6 % (19-41); Mean Corp Hgb Conc 31.5 g/dL (32-36); Mean Corpuscular Hgb 27.2 pg (27.0-32.0); Mean Corpuscular Volume 86.5 fL (80-94); Mean Platelet Vol. 11.9 fl (6.2-12.0); Monocyte# 0.89 X10^3/uL; Monocyte% 11.6 % (0-10); NRBC Flagged by Analyzer 0 % (0-5); Neutrophil # 4.63 X10^3/uL (2.7-7.7); Neutrophil % 60.6 % (47-70); Platelet Count 356 K/mm3 (150-450); RBC Distribution Width CV 13.7 % (11.6-14.6); RBC Distribution Width SD 43.4 fl (35.1-43.9); Red Blood Count 3.71 M/mm3 (4.6-6.2); White Blood Count 7.6 K/mm3 (4.4-11.0)
[2019-07-18] MEDS: Ezetimibe 10 MG Tablet PO (06:36)
[2019-07-18] MEDS: Chlorthalidone 50 MG Tablet 12.5 MG PO (06:36)
[2019-07-18] MEDS: Cyanocobalamin 500 MCG Tablet 1000 MCG PO (06:36)
[2019-07-18] MEDS: Cephalexin 500 MG Capsule PO ×2 (06:36→17:52)
[2019-07-18] MEDS: Lisinopril 40 MG Tablet PO (06:36)
[2019-07-18] MEDS: Pantoprazole Sodium 40 MG Tablet PO (06:36)
[2019-07-18] MEDS: Finasteride 5 MG Tablet PO (06:36)
[2019-07-18] MEDS: Doxazosin 4 MG Tablet 8 MG PO (06:36)
[2019-07-18] MEDS: Atorvastatin Calcium 80 MG Tablet PO (06:36)
[2019-07-18] MEDS: NYSTATIN 500,000 UNIT/5 ML UDC 500000 UNIT PO ×4 (06:36→20:42)
[2019-07-18] MEDS: Doxycycline 100 MG CAPSULE PO ×2 (06:36→17:52)
[2019-07-18] MEDS: Menthol/Lanolin/Calamine/Znox 113 GM Tube 1 APPLIC TOPICAL ×2 (06:37→20:46)
[2019-07-18] MEDS: Nystatin Powder 15gm Bottle 1 APPLIC TOPICAL ×2 (06:38→20:46)
[2019-07-18 06:43] LABS: Anion Gap 6 (5-15); BUN 55 mg/dL (7-18); BUN/Creat Ratio 28.6 RATIO (10-20); Calcium,Total 8.7 mg/dL (8.5-10.1); Chloride 108 mmol/L (98-107); Creatinine, Serum 1.92 mg/dL (0.70-1.30); EST Glomerular Filtration Rate 36 mL/min (>60); Est Glom Filt Rate - Afr Amer 43 mL/min (>60); Estimated Creatinine Clearance 29.19 ml/min; Glucose 114 mg/dL (74-106); Potassium 4.5 mmol/L (3.5-5.1); Sodium Level 136 mmol/L (136-145)
[2019-07-18] MEDS: Sertraline 50 MG Tablet PO (06:44)
[2019-07-18] MEDS: Aspirin 81 MG TAB.CHEW PO (08:05)
[2019-07-18] MEDS: Iron Polysaccharide Complex 150 MG CAPSULE PO (08:05)
[2019-07-18] MEDS: Glucerna Shake 120 ML LIQUID PO ×3 (12:56→20:41)
[2019-07-18] MEDS: Tuberculin,Purif.prot.deriv. 50 TU/ML Vial 5 ML ID (14:53)
[2019-07-18 15:27] VITALS: BP 116/44; PULSE 76; RESP 18; TEMP 36.9; O2SAT 96
--- NOTE | 2019-07-18 16:14 | NURSING ---
Colostomy appliance changed d/t opsite drsg saturated with serosang drng from midline incision. Sutures and nikolai intact. Skin around stoma less irritated, less erythema noted as well. order from surgeon to remove nikolai and sutures but awaiting wound nurse suggestions d/t concern of midline incision redness & continues with drng. not well approximated at areas on incision. stoma beefy red, sutures noted around stoma site.
--- NOTE | 2019-07-18 18:32 | NURSING ---
colostomy bag seal broken. mod amt nonformed/loose stool leaked out. skin cleansed. new surgical mepilex applied to abd incision and new colostomy appliance applied.
[2019-07-18] MEDS: Donepezil HCl 5 MG Tablet PO (20:42)
[2019-07-18 21:32] VITALS: RESP 18; O2SAT 95
[2019-07-19] MEDS: Doxycycline 100 MG CAPSULE PO (06:16)
[2019-07-19] MEDS: Atorvastatin Calcium 80 MG Tablet PO (06:16)
[2019-07-19] MEDS: Chlorthalidone 50 MG Tablet 12.5 MG PO (06:16)
[2019-07-19] MEDS: NYSTATIN 500,000 UNIT/5 ML UDC 500000 UNIT PO ×3 (06:16→21:45)
[2019-07-19] MEDS: Finasteride 5 MG Tablet PO (06:16)
[2019-07-19] MEDS: Cephalexin 500 MG Capsule PO (06:16)
[2019-07-19] MEDS: Ezetimibe 10 MG Tablet PO (06:17)
[2019-07-19] MEDS: Doxazosin 4 MG Tablet 8 MG PO (06:17)
[2019-07-19] MEDS: Pantoprazole Sodium 40 MG Tablet PO (06:17)
[2019-07-19] MEDS: Sertraline 50 MG Tablet PO (06:17)
[2019-07-19] MEDS: Cyanocobalamin 500 MCG Tablet 1000 MCG PO (06:17)
[2019-07-19] MEDS: Menthol/Lanolin/Calamine/Znox 113 GM Tube 1 APPLIC TOPICAL ×2 (06:18→21:52)
[2019-07-19] MEDS: Nystatin Powder 15gm Bottle 1 APPLIC TOPICAL ×2 (06:18→21:51)
[2019-07-19] MEDS: Glucerna Shake 120 ML LIQUID PO ×4 (06:21→21:52)
[2019-07-19] MEDS: Lisinopril 20 MG Tablet PO (06:24)
[2019-07-19] MEDS: Iron Polysaccharide Complex 150 MG CAPSULE PO (07:53)
--- NOTE | 2019-07-19 09:41 | NURSING ---
In to assess the colostomy appliance. there is some stool leakage noted on the abdominal dressing. the dressing and appliance removed at this time. there was a moderate amount of stool noted under the abdominal dressing. cleansed the incision and peristomal skin with Dial soap and water. rinsed and dried. removed nikolai and sutures as ordered. applied 4 steri strips for protection, but the incision is pretty well approximated. covered incision with dry dressing and Medipore tape. the stoma is not sitting slightly below the skin level. there is some mild mucocutaneous separation most likely from poor nutritional intake. the peristomal skin is slightly macerated. applied a new 1 piece flat Alicia appliance with an oval convex ring to hopefully prevent stool from going under the appliance. also placed a small bead of paste in the crease near the incision. observed appliance change again. pt tolerated well.
[2019-07-19 16:00] VITALS: BP 136/42; PULSE 71; RESP 18; TEMP 37.1; O2SAT 97
--- NOTE | 2019-07-19 18:11 | NURSING ---
Pt colostomy appliance noted to be leaking at this time with seal broken, moderate amount of stool noted to abdominal dressing. Appliance and dressing removed at this time and incision cleansed with dial soap and water, patted dry, two new steri-strips applied to incision but incision remains approximated, covered with dry dressing and secured with medipore tape. New colostomy appliance applied. Pt tolerated well.
[2019-07-19] MEDS: Donepezil HCl 5 MG Tablet PO (21:45)
[2019-07-20] MEDS: Finasteride 5 MG Tablet PO (06:11)
[2019-07-20] MEDS: Atorvastatin Calcium 80 MG Tablet PO (06:11)
[2019-07-20] MEDS: Chlorthalidone 50 MG Tablet 12.5 MG PO (06:11)
[2019-07-20] MEDS: Cyanocobalamin 500 MCG Tablet 1000 MCG PO (06:13)
[2019-07-20] MEDS: Lisinopril 20 MG Tablet PO (06:13)
[2019-07-20] MEDS: Pantoprazole Sodium 40 MG Tablet PO (06:13)
[2019-07-20] MEDS: Ezetimibe 10 MG Tablet PO (06:13)
[2019-07-20] MEDS: Sertraline 50 MG Tablet PO (06:13)
[2019-07-20] MEDS: Doxazosin 4 MG Tablet 8 MG PO (06:13)
[2019-07-20] MEDS: Nystatin Powder 15gm Bottle 1 APPLIC TOPICAL ×2 (06:14→20:24)
[2019-07-20] MEDS: Glucerna Shake 120 ML LIQUID PO ×2 (06:14→20:22)
[2019-07-20] MEDS: NYSTATIN 500,000 UNIT/5 ML UDC 500000 UNIT PO ×4 (06:14→20:21)
[2019-07-20] MEDS: Menthol/Lanolin/Calamine/Znox 113 GM Tube 1 APPLIC TOPICAL ×2 (06:15→20:51)
[2019-07-20] MEDS: Iron Polysaccharide Complex 150 MG CAPSULE PO (08:09)
[2019-07-20] MEDS: Loratadine 10 MG Tablet PO (13:17)
[2019-07-20] MEDS: Loperamide 2 MG Capsule PO (13:17)
--- NOTE | 2019-07-20 16:07 | CHAPLAIN ---
met daughter of patient in the hallway as she was asking a question for her father; offered support and listened to daughter tell of situation for patient and family; no immediate needs or concerns at this time
[2019-07-20] MEDS: Donepezil HCl 5 MG Tablet PO (20:21)
[2019-07-20 20:25] VITALS: RESP 18; O2SAT 97
[2019-07-21] MEDS: Atorvastatin Calcium 80 MG Tablet PO (06:02)
[2019-07-21] MEDS: Pantoprazole Sodium 40 MG Tablet PO (06:02)
[2019-07-21] MEDS: Glucerna Shake 120 ML LIQUID PO (06:02)
[2019-07-21] MEDS: Ezetimibe 10 MG Tablet PO (06:02)
[2019-07-21] MEDS: Doxazosin 4 MG Tablet 8 MG PO (06:03)
[2019-07-21] MEDS: Sertraline 50 MG Tablet PO (06:03)
[2019-07-21] MEDS: Cyanocobalamin 500 MCG Tablet 1000 MCG PO (06:03)
[2019-07-21] MEDS: Lisinopril 20 MG Tablet PO (06:03)
[2019-07-21] MEDS: Chlorthalidone 50 MG Tablet 12.5 MG PO (06:03)
[2019-07-21] MEDS: Finasteride 5 MG Tablet PO (06:04)
[2019-07-21] MEDS: Menthol/Lanolin/Calamine/Znox 113 GM Tube 1 APPLIC TOPICAL ×2 (06:08→20:32)
[2019-07-21] MEDS: Nystatin Powder 15gm Bottle 1 APPLIC TOPICAL ×2 (06:09→20:33)
[2019-07-21] MEDS: Acetaminophen 500 MG Tablet 1000 MG PO (08:12)
[2019-07-21] MEDS: Iron Polysaccharide Complex 150 MG CAPSULE PO (08:13)
--- NOTE | 2019-07-21 09:59 | NURSING ---
PT CAME TO THIS NURSE AND STATED SHE WAS CONCERN ABOUT PT NOT EATING WELL AND THOUGHT HE WAS LOSING WEIGHT. THIS NURSE WEIGHTED PT ON STAND UP. WEIGHTS OF 07/13-166.0, 07/20-160.3, 07/21-158.0. ASKED PT IF HE HAS ANY APPETITE,PT STATED NO LESLEE JUST NOT HUNGRY. NO COMPLAINTS OF NAUSEA OR STOMACH PAINS. REPORTED TO JOJO HAYES
--- NOTE | 2019-07-21 10:24 | NURSING ---
PT DAUGHTER CAME TO THIS NURSE AND STATED MY DAD TOLD ME THAT WHEN HE TAKES A COUPLE BITES OF FOOD HE FEELS FULL AFTER THAT AND DOESN'T WANT TO EAT ANY MORE. DAUGHTER ALSO STATED SHE WAS CONCERNED THAT HE MAY HAVE A HEMATOMA AT SURGERY SITE DUE TO A FAMILY MEMBER HAVING A SIMILAR PROBLEM. REPORTED TO JOJO HAYES WHO WILL NOTIFY .
[2019-07-21 10:50] VITALS: PULSE 77; RESP 18; O2SAT 97
[2019-07-21 12:35] VITALS: BP 126/46; PULSE 74; RESP 16; O2SAT 98
--- NOTE | 2019-07-21 12:45 | RAD_ITS ---
STUDY: X-RAY - ABDOMEN/PELVIS REASON FOR EXAM: Male, 79 years old. Weakness. TECHNIQUE: AP supine and upright views of the abdomen and pelvis. COMPARISON: None. FINDINGS: Normal visualized lung bases. There is a moderate amount of colonic fecal material. There is no demonstrated free abdominal air. The visualized liver, spleen and kidneys are grossly normal in size and morphology. Normal soft tissue structures. There are diffuse degenerative changes of the visualized lumbar spine. Prior laminectomy and fusion at the L4-L5 level. Degenerative changes of the sacroiliac joints bilaterally. RAD/Abd Inc Decub and/or Erect IMPRESSION: Moderate amount of fecal material is seen in the colon. Electronically Signed: Dominik Barriga, at 13:22 EDT , Service support ,
[2019-07-21 12:55] LABS: Absolute Lymphocyte Count 1.07 X10^3/uL (0.83-4.51); Absolute Neutrophil Count 4.4 X10^3/uL (2.0-7.7); Basophil# 0.01 X10^3/uL; Basophil% 0.2 % (0-1); Eosinophil# 0.66 X10^3/uL; Hematocrit 35.8 % (40-54); Hemoglobin 11.4 g/dL (13.0-16.5); Lymphocyte # 1.07 X10^3/ul (4.0); Lymphocyte % 16.2 % (19-41); Mean Corp Hgb Conc 31.8 g/dL (32-36); Mean Corpuscular Hgb 27.3 pg (27.0-32.0); Mean Corpuscular Volume 85.6 fL (80-94); Mean Platelet Vol. 11.5 fl (6.2-12.0); Monocyte# 0.42 X10^3/uL; Monocyte% 6.3 % (0-10); NRBC Flagged by Analyzer 0 % (0-5); Neutrophil # 4.43 X10^3/uL (2.7-7.7); Neutrophil % 66.8 % (47-70); Platelet Count 295 K/mm3 (150-450); RBC Distribution Width CV 13.6 % (11.6-14.6); RBC Distribution Width SD 42.8 fl (35.1-43.9); Red Blood Count 4.18 M/mm3 (4.6-6.2); White Blood Count 6.6 K/mm3 (4.4-11.0)
[2019-07-21 13:00] VITALS: BP 113/41; PULSE 70; RESP 18; TEMP 36.7; O2SAT 95
--- NOTE | 2019-07-21 13:00 | NURSING ---
per MANUFACTURING TECHNOLOGIST, William and daughter, pt c/o feeling dizzy while in xray and felt like passing out. Vitals checked upon return to floor, poor skin turgor, pt did states he has not been drinking much. Will notify Dr. Marin once all results are back.
[2019-07-21 13:11] LABS: ALB/GLOB Ratio 0.6 RATIO (0.9-2.4); AST(SGOT) 17 U/L (15-37); Alanine Aminotransfer ALT/SGPT 33 U/L (16-61); Albumin, Serum 2.6 g/dL (3.2-5.0); Alkaline Phosphatase 123 U/L (45-117); Anion Gap 6 (5-15); BUN 68 mg/dL (7-18); BUN/Creat Ratio 30.2 RATIO (10-20); Calcium,Total 8.9 mg/dL (8.5-10.1); Chloride 109 mmol/L (98-107); Creatinine, Serum 2.25 mg/dL (0.70-1.30); EST Glomerular Filtration Rate 30 mL/min (>60); Est Glom Filt Rate - Afr Amer 36 mL/min (>60); Estimated Creatinine Clearance 24.91 ml/min; Glucose 140 mg/dL (74-106); Potassium 5.1 mmol/L (3.5-5.1); Protein, Total 6.6 g/dL (6.4-8.2); Sodium Level 136 mmol/L (136-145)
--- NOTE | 2019-07-21 13:23 | NURSING ---
Late entry: at approx 0930, this nurse was called d/t colostomy appliance leaking. patient was up with therapy. pt is ambulating well. states he still does not have an appetite. assess the abdominal dressing. there was a small amount of stool noted on the outer edge. removed dressing and ostomy appliance. small amount of liquid brown stool noted in the appliance. the redness to the abdominal incision appears improved. less drainage noted from the incision. removed the steri strips d/t stool contamination. cleansed the incision and peristomal skin with Dial soap and water. rinsed the skin with warm was and pat dry. the leaks are still occurring at the medial crease near the incision. stoma sits just below the skin level. less maceration noted to the peristomal skin. lightly dusted with stoma paste. placed a small bead of paste in the crease and applied a 1 piece flat appliance with an Adaptic oval convex ring with a small amount of stoma paste. had placed a thin strip of Aquacel AG along incision and covered with wound VAC drape. in and observed another appliance/dressing change.
[2019-07-21] MEDS: 0.9% Normal Saline 1,000 ML 999 ML IV (15:33)
[2019-07-21 16:00] VITALS: BP 125/59; PULSE 68; RESP 22; TEMP 36.8; O2SAT 98
[2019-07-21] MEDS: 0.9% Normal Saline 1,000 ML 60 ML IV (16:46)
[2019-07-21] MEDS: Electrolyte Solution/Peg's 4000 ML 1000 ML PO (16:48)
--- NOTE | 2019-07-21 17:54 | NURSING ---
JOJO TRUJILLO/WOUND NURSE CHANGED OSTOMY AND DRESSING TODAY.
[2019-07-21] MEDS: Donepezil HCl 5 MG Tablet PO (20:32)
[2019-07-22 04:30] VITALS: BP 120/47; PULSE 68; RESP 16
[2019-07-22] MEDS: Pantoprazole Sodium 40 MG Tablet PO (04:36)
[2019-07-22] MEDS: Atorvastatin Calcium 80 MG Tablet PO (04:36)
[2019-07-22] MEDS: Ezetimibe 10 MG Tablet PO (04:38)
[2019-07-22] MEDS: Finasteride 5 MG Tablet PO (04:38)
[2019-07-22] MEDS: Lisinopril 20 MG Tablet PO (04:38)
[2019-07-22] MEDS: Cyanocobalamin 500 MCG Tablet 1000 MCG PO (04:38)
[2019-07-22] MEDS: Sertraline 50 MG Tablet PO (04:38)
[2019-07-22] MEDS: Doxazosin 4 MG Tablet 8 MG PO (04:39)
[2019-07-22] MEDS: Polyethylene Glycol 3350 17 GM PACKET PO (04:44)
[2019-07-22] MEDS: Nystatin Powder 15gm Bottle 1 APPLIC TOPICAL ×2 (04:45→20:50)
[2019-07-22] MEDS: Menthol/Lanolin/Calamine/Znox 113 GM Tube 1 APPLIC TOPICAL ×2 (04:45→20:49)
[2019-07-22 06:07] LABS: Anion Gap 7 (5-15); BUN 57 mg/dL (7-18); BUN/Creat Ratio 34.3 RATIO (10-20); Calcium,Total 8.3 mg/dL (8.5-10.1); Chloride 110 mmol/L (98-107); Creatinine, Serum 1.66 mg/dL (0.70-1.30); EST Glomerular Filtration Rate 43 mL/min (>60); Est Glom Filt Rate - Afr Amer 51 mL/min (>60); Estimated Creatinine Clearance 33.77 ml/min; Glucose 102 mg/dL (74-106); Potassium 4.7 mmol/L (3.5-5.1); Sodium Level 139 mmol/L (136-145)
[2019-07-22] MEDS: Iron Polysaccharide Complex 150 MG CAPSULE PO (09:04)
[2019-07-22] MEDS: Glucerna Shake 120 ML LIQUID PO ×2 (11:53→17:23)
[2019-07-22 15:06] VITALS: BP 125/60; PULSE 76; RESP 18; TEMP 36.7; O2SAT 96
--- NOTE | 2019-07-22 16:01 | CASEMGMT ---
Addendum entered by Mindi Severino 07/23/19 10:45: Insurance: Continues stay approved. Next update due 07/26/19. Auth # [id number] Original Note: Insurance: Continued stay review sent through Secure email on 07/19/19. Continued stay approved with next review date 07/22/19. Continued stay review sent through Secure email this day. auth # [id number].
--- NOTE | 2019-07-22 16:09 | CASEMGMT ---
Insurance: Continued stay review sent through MMO review link on 07/19/19. Continued stay denied. LCD 07/22 with D/C on 07/23/19. TEODORO Higgins aware. Auth # [id number]
[2019-07-22] MEDS: Senna/Docusate Sodium 1 Tablet PO (17:24)
[2019-07-22] MEDS: Donepezil HCl 5 MG Tablet PO (20:49)
[2019-07-23] MEDS: Atorvastatin Calcium 80 MG Tablet PO (05:32)
[2019-07-23] MEDS: Menthol/Lanolin/Calamine/Znox 113 GM Tube 1 APPLIC TOPICAL ×2 (05:32→21:36)
[2019-07-23] MEDS: Doxazosin 4 MG Tablet 8 MG PO (05:32)
[2019-07-23] MEDS: Sertraline 50 MG Tablet PO (05:32)
[2019-07-23] MEDS: Ezetimibe 10 MG Tablet PO (05:32)
[2019-07-23] MEDS: Cyanocobalamin 500 MCG Tablet 1000 MCG PO (05:32)
[2019-07-23] MEDS: Polyethylene Glycol 3350 17 GM PACKET PO (05:32)
[2019-07-23] MEDS: Finasteride 5 MG Tablet PO (05:32)
[2019-07-23] MEDS: Lisinopril 20 MG Tablet PO (05:32)
[2019-07-23] MEDS: Pantoprazole Sodium 40 MG Tablet PO (05:32)
[2019-07-23] MEDS: Senna/Docusate Sodium 1 Tablet PO ×2 (05:32→16:55)
[2019-07-23] MEDS: Nystatin Powder 15gm Bottle 1 APPLIC TOPICAL ×2 (05:33→21:36)
[2019-07-23] MEDS: Iron Polysaccharide Complex 150 MG CAPSULE PO (08:08)
--- NOTE | 2019-07-23 10:26 | CASEMGMT ---
Social Work Notified pt and dtr next insurance update 07/26. BIMS and PHQ-9 completed for MDS assessment. Apoorva Chua MSW CHILD DEVELOPMENT PROFESSOR
--- NOTE | 2019-07-23 11:12 | NURSING ---
the colostomy appliance remains intact. pt stated he has been feeling much better now and eating well. plan to change appliance again with family Friday or Friday of next week. patient's has observed about 4 times now.
[2019-07-23] MEDS: Glucerna Shake 120 ML LIQUID PO ×3 (11:19→21:34)
[2019-07-23 16:00] VITALS: BP 121/51; PULSE 69; RESP 16; TEMP 36.9; O2SAT 98
--- NOTE | 2019-07-23 18:52 | NURSING ---
NOODLE PRESS OPERATOR reported that pt stated he went to the bathroom because he felt like he was going to have a bowel movement. Pt stated what appeared to be a blood clot that came from his rectum and was in the toilet. Pt flushed toilet and nurse not able to assess. Reported to Suyapa URIBE. Will continue to monitor.
[2019-07-23] MEDS: Donepezil HCl 5 MG Tablet PO (21:35)
[2019-07-24] MEDS: Glucerna Shake 120 ML LIQUID PO ×3 (05:04→21:35)
[2019-07-24 05:08] VITALS: BP 142/58; PULSE 66
[2019-07-24] MEDS: Atorvastatin Calcium 80 MG Tablet PO (05:08)
[2019-07-24] MEDS: Doxazosin 4 MG Tablet 8 MG PO (05:08)
[2019-07-24] MEDS: Pantoprazole Sodium 40 MG Tablet PO (05:08)
[2019-07-24] MEDS: Cyanocobalamin 500 MCG Tablet 1000 MCG PO (05:09)
[2019-07-24] MEDS: Lisinopril 20 MG Tablet PO (05:09)
[2019-07-24] MEDS: Finasteride 5 MG Tablet PO (05:09)
[2019-07-24] MEDS: Sertraline 50 MG Tablet PO (05:09)
[2019-07-24] MEDS: Ezetimibe 10 MG Tablet PO (05:09)
[2019-07-24] MEDS: Senna/Docusate Sodium 1 Tablet PO ×2 (05:09→16:54)
[2019-07-24] MEDS: Nystatin Powder 15gm Bottle 1 APPLIC TOPICAL ×2 (05:11→21:35)
[2019-07-24] MEDS: Menthol/Lanolin/Calamine/Znox 113 GM Tube 1 APPLIC TOPICAL ×2 (05:12→21:35)
[2019-07-24] MEDS: Iron Polysaccharide Complex 150 MG CAPSULE PO (08:06)
[2019-07-24 14:30] VITALS: PULSE 70; RESP 18; O2SAT 97
--- NOTE | 2019-07-24 15:33 | NURSING ---
ostomy changed due to leakage. reported to scott dsouza
[2019-07-24 16:00] VITALS: BP 137/43; PULSE 68; RESP 18; TEMP 36.7; O2SAT 98
[2019-07-24] MEDS: Donepezil HCl 5 MG Tablet PO (21:37)
[2019-07-25] MEDS: Glucerna Shake 120 ML LIQUID PO ×2 (06:13→20:55)
[2019-07-25] MEDS: Menthol/Lanolin/Calamine/Znox 113 GM Tube 1 APPLIC TOPICAL ×2 (06:13→20:56)
[2019-07-25] MEDS: Atorvastatin Calcium 80 MG Tablet PO (06:14)
[2019-07-25] MEDS: Doxazosin 4 MG Tablet 8 MG PO (06:14)
[2019-07-25] MEDS: Polyethylene Glycol 3350 17 GM PACKET PO (06:14)
[2019-07-25] MEDS: Cyanocobalamin 500 MCG Tablet 1000 MCG PO (06:15)
[2019-07-25] MEDS: Nystatin Powder 15gm Bottle 1 APPLIC TOPICAL ×2 (06:15→20:56)
[2019-07-25] MEDS: Finasteride 5 MG Tablet PO (06:16)
[2019-07-25] MEDS: Pantoprazole Sodium 40 MG Tablet PO (06:17)
[2019-07-25] MEDS: Senna/Docusate Sodium 1 Tablet PO ×2 (06:17→17:09)
[2019-07-25 06:18] VITALS: BP 119/51; PULSE 62
[2019-07-25] MEDS: Lisinopril 20 MG Tablet PO (06:18)
[2019-07-25] MEDS: Ezetimibe 10 MG Tablet PO (06:19)
[2019-07-25] MEDS: Sertraline 50 MG Tablet PO (06:19)
[2019-07-25] MEDS: Iron Polysaccharide Complex 150 MG CAPSULE PO (08:17)
[2019-07-25 08:28] LABS: Anion Gap 7 (5-15); BUN 44 mg/dL (7-18); BUN/Creat Ratio 29.5 RATIO (10-20); Calcium,Total 8.6 mg/dL (8.5-10.1); Chloride 106 mmol/L (98-107); Creatinine, Serum 1.49 mg/dL (0.70-1.30); EST Glomerular Filtration Rate 48 mL/min (>60); Est Glom Filt Rate - Afr Amer 58 mL/min (>60); Estimated Creatinine Clearance 37.62 ml/min; Glucose 109 mg/dL (74-106); Potassium 4.3 mmol/L (3.5-5.1); Sodium Level 141 mmol/L (136-145)
[2019-07-25 08:51] LABS: Hemoglobin 11.1 g/dL (13.0-16.5); Mean Corpuscular Volume 84.2 fL (80-94); Red Blood Count 4.04 M/mm3 (4.6-6.2); White Blood Count 5.2 K/mm3 (4.4-11.0)
[2019-07-25 08:52] LABS: Absolute Neutrophil Count 3.4 X10^3/uL (2.0-7.7); Basophil% 0.2 % (0-1); Eosinophils% 8.2 % (0-5); Lymphocyte % 16.7 % (19-41); Mean Corp Hgb Conc 32.6 g/dL (32-36); Mean Corpuscular Hgb 27.5 pg (27.0-32.0); Mean Platelet Vol. 12.4 fl (6.2-12.0); Monocyte% 9.8 % (0-10); Neutrophil # 3.38 X10^3/uL (2.7-7.7); Neutrophil % 64.7 % (47-70); Platelet Count 194 K/mm3 (150-450); RBC Distribution Width CV 13.3 % (11.6-14.6); RBC Distribution Width SD 40.9 fl (35.1-43.9)
[2019-07-25 08:53] LABS: Absolute Lymphocyte Count 0.87 X10^3/uL (0.83-4.51); Basophil# 0.01 X10^3/uL; Eosinophil# 0.43 X10^3/uL; Lymphocyte # 0.87 X10^3/ul (4.0); Monocyte# 0.51 X10^3/uL; NRBC Flagged by Analyzer 0 % (0-5)
[2019-07-25 15:21] VITALS: BP 125/46; PULSE 63; RESP 18; TEMP 36.7; O2SAT 95
[2019-07-25] MEDS: Donepezil HCl 5 MG Tablet PO (20:55)
[2019-07-26] MEDS: Lisinopril 20 MG Tablet PO (05:13)
[2019-07-26] MEDS: Atorvastatin Calcium 80 MG Tablet PO (05:13)
[2019-07-26] MEDS: Cyanocobalamin 500 MCG Tablet 1000 MCG PO (05:13)
[2019-07-26] MEDS: Pantoprazole Sodium 40 MG Tablet PO (05:13)
[2019-07-26] MEDS: Menthol/Lanolin/Calamine/Znox 113 GM Tube 1 APPLIC TOPICAL ×2 (05:13→20:49)
[2019-07-26] MEDS: Doxazosin 4 MG Tablet 8 MG PO (05:13)
[2019-07-26] MEDS: Sertraline 50 MG Tablet PO (05:13)
[2019-07-26] MEDS: Ezetimibe 10 MG Tablet PO (05:13)
[2019-07-26] MEDS: Finasteride 5 MG Tablet PO (05:13)
[2019-07-26] MEDS: Nystatin Powder 15gm Bottle 1 APPLIC TOPICAL ×2 (05:15→20:49)
[2019-07-26] MEDS: Senna/Docusate Sodium 1 Tablet PO ×2 (06:59→16:55)
[2019-07-26] MEDS: Iron Polysaccharide Complex 150 MG CAPSULE PO (09:13)
--- NOTE | 2019-07-26 10:29 | CASEMGMT ---
Insurance: Continued stay review sent through Secure email this day. auth # [id number]
--- NOTE | 2019-07-26 13:42 | NURSING ---
In to do ostomy appliance change with patient, , daughter, and granddaughter. removed appliance and midline dressing. the incision is still slightly reddened. there are 3 small areas that are not completely closed. minimal drainage noted. incision cleansed with soap and water. pat dry. placed Aquacel AG along the incision and covered with VAC drape. placed a small bead of stoma paste in the crease to the medial edge of the stoma. applied a new 1 piece flat [place] appliance with an Shruthi ring. awaiting the Adapt oval convex rings to come in. pt tolerated well. all questions answered. ostomy booklet given as well as step by step appliance change list. plan to change appliance again 07/28/19 after pt showers.
[2019-07-26 15:07] VITALS: BP 136/46; PULSE 65; RESP 19; TEMP 37.1; O2SAT 97
[2019-07-26] MEDS: Glucerna Shake 120 ML LIQUID PO ×2 (16:55→20:48)
--- NOTE | 2019-07-26 16:58 | NURSING ---
Had pt demonstrate burping colostomy bag, pt did well but needing some cueing with steps. at bedside. not enough stool to empty yet but will encourage pt to empty when enough stool in bag.
[2019-07-26] MEDS: Donepezil HCl 5 MG Tablet PO (20:49)
[2019-07-27] MEDS: Cyanocobalamin 500 MCG Tablet 1000 MCG PO (06:36)
[2019-07-27] MEDS: Doxazosin 4 MG Tablet 8 MG PO (06:36)
[2019-07-27] MEDS: Atorvastatin Calcium 80 MG Tablet PO (06:36)
[2019-07-27] MEDS: Menthol/Lanolin/Calamine/Znox 113 GM Tube 1 APPLIC TOPICAL ×2 (06:37→21:19)
[2019-07-27] MEDS: Nystatin Powder 15gm Bottle 1 APPLIC TOPICAL ×2 (06:37→21:19)
[2019-07-27] MEDS: Sertraline 50 MG Tablet PO (06:37)
[2019-07-27] MEDS: Senna/Docusate Sodium 1 Tablet PO ×2 (06:37→17:40)
[2019-07-27] MEDS: Lisinopril 20 MG Tablet PO (06:37)
[2019-07-27] MEDS: Ezetimibe 10 MG Tablet PO (06:37)
[2019-07-27] MEDS: Pantoprazole Sodium 40 MG Tablet PO (06:37)
[2019-07-27] MEDS: Finasteride 5 MG Tablet PO (06:39)
[2019-07-27 08:38] VITALS: BP 120/45; BP 148/46; BP 82/37; PULSE 77; PULSE 86; PULSE 87
[2019-07-27] MEDS: Iron Polysaccharide Complex 150 MG CAPSULE PO (08:53)
--- NOTE | 2019-07-27 09:13 | NURSING ---
Addendum entered by Noemy Burton 07/27/19 10:11: dr mares updated, new order to start midodrine TID 5mg. Original Note: Orthostatic VS: Lying BP 148-46, P 87; Sitting BP 120/45, P 77; Standing BP 82/37, P 86.
[2019-07-27] MEDS: Glucerna Shake 120 ML LIQUID PO ×3 (11:48→21:18)
--- NOTE | 2019-07-27 13:49 | NURSING ---
Pt had come back from therapy and his colostomy appliance was leaking. pt states the therapy belt was right across his appliance. this most likely pulled the appliance loose. removed the entire appliance and abdominal dressing. the incision is much less red today. cleansed the incision and peristomal skin with soap and water. pat dry. applied a new colostomy appliance with a convex ring. the incision is nearly healed. very minimal drainage noted. placed a small piece of Aquacel AG along the incision and covered with VAC drape. plan is for pt to be discharged home tomorrow. pt will be able to leave the surgical incision SHELL soon. will change appliance again tomorrow prior to discharge home. pt wanting to shower as well.
[2019-07-27] MEDS: Midodrine HCl 5 MG Tablet PO ×2 (14:44→21:16)
[2019-07-27 16:00] VITALS: BP 123/45; PULSE 64; RESP 18; TEMP 36.9; O2SAT 96
[2019-07-27] MEDS: Donepezil HCl 5 MG Tablet PO (21:15)
[2019-07-28] MEDS: Glucerna Shake 120 ML LIQUID PO ×2 (06:01→10:59)
[2019-07-28] MEDS: Polyethylene Glycol 3350 17 GM PACKET PO (06:01)
[2019-07-28] MEDS: Doxazosin 4 MG Tablet 8 MG PO (06:01)
[2019-07-28] MEDS: Sertraline 50 MG Tablet PO (06:02)
[2019-07-28] MEDS: Cyanocobalamin 500 MCG Tablet 1000 MCG PO (06:02)
[2019-07-28] MEDS: Lisinopril 20 MG Tablet PO (06:02)
[2019-07-28] MEDS: Senna/Docusate Sodium 1 Tablet PO (06:03)
[2019-07-28] MEDS: Atorvastatin Calcium 80 MG Tablet PO (06:03)
[2019-07-28] MEDS: Pantoprazole Sodium 40 MG Tablet PO (06:03)
[2019-07-28] MEDS: Finasteride 5 MG Tablet PO (06:03)
[2019-07-28] MEDS: Midodrine HCl 5 MG Tablet PO ×2 (06:03→13:38)
[2019-07-28] MEDS: Ezetimibe 10 MG Tablet PO (06:03)
[2019-07-28] MEDS: Nystatin Powder 15gm Bottle 1 APPLIC TOPICAL (06:05)
[2019-07-28] MEDS: Menthol/Lanolin/Calamine/Znox 113 GM Tube 1 APPLIC TOPICAL (06:05)
[2019-07-28] MEDS: Iron Polysaccharide Complex 150 MG CAPSULE PO (08:39)
--- NOTE | 2019-07-28 08:52 | DCINST_ITS ---
- Discharge Diagnoses Current Active Problems: Current Active and Chronic Problems Debility (Acute) Pneumoperitoneum (Acute) Perforated diverticulum (Acute) Diverticular disease of intestine with perforation and abscess (Acute) Sigmoid diverticulitis (Acute) Coronary artery disease (Chronic) Hiatal hernia (Chronic) Alzheimer disease (Chronic) BPH (benign prostatic hyperplasia) (Chronic) Diabetes mellitus (Chronic) You will use the following diet at home:: No restrictions, Regular Your food should be the consistency of: Regular Your liquids should be the consistency of: Regular/Thin Discharge Activity: Return to Normal Activity, May Shower, Use Walker Weight Bearing Status: Weight bearing as tolerated Call your doctor if you observe: Fever of 101 or Higher, Inability to urinate, Inability to have a bowel movement, Shortness of breath, Chest pain, Uncontrolled pain Allergies/Adverse Reactions: Allergies morphine Allergy (Verified 02/13/18 14:03) Itching oxycodone [From OxyIR] Adverse Reaction (Verified 07/22/19 09:06) Other Medications to take at Discharge Atorvastatin Calcium 80 mg PO DAILY 02/13/18 Cholecalciferol (Vitamin D3) [Vitamin D3] 2,000 unit PO DAILY 02/13/18 Finasteride [Proscar] 5 mg PO DAILY 02/13/18 Sertraline HCl [Zoloft] 50 mg PO DAILY 02/13/18 Cyanocobalamin (Vitamin B-12) [B-12] 1,000 mcg PO DAILY 07/03/19 Donepezil HCl [Aricept] 5 mg PO QHS 07/03/19 Ezetimibe [Zetia] 10 mg PO DAILY 07/03/19 Lisinopril [Zestril] 40 mg PO DAILY 07/03/19 Terazosin HCl 10 mg PO DAILY 07/03/19 Acetaminophen [Tylenol Extra Strength] 1,000 mg PO Q6H PRN PRN 07/10/19 Acetaminophen [Tylenol] 1,000 mg PO Q6H PRN PRN tablet 07/28/19 Iron Polysaccharide Complex [Ferrex 150] 150 mg PO DAILYCM #30 cap 07/28/19 Loratadine [Claritin] 10 mg PO DAILY PRN tablet 07/28/19 Menthol/Lanolin/Calamine/Znox [Calmoseptine Ointment] 1 applic TOPICAL 0600,2200 tube 07/28/19 Midodrine HCl [Proamatine] 5 mg PO TID #90 tab 07/28/19 Nystatin Powder [Mycostatin Powder] 1 applic TOPICAL 0600,2200 bottle 07/28/19 Pantoprazole Sodium [Protonix] 40 mg PO DAILY #30 tab 07/28/19 The following prescriptions were given: Iron Polysaccharide Complex [Ferrex 150] 150 mg PO DAILYCM #30 cap Prescription Printed Midodrine HCl [Proamatine] 5 mg PO TID #90 tab Prescription Printed Pantoprazole Sodium [Protonix] 40 mg PO DAILY #30 tab Prescription Printed Primary Care Physician: Santo Nick MD [Primary Care Provider] - Please follow up with your Primary Care Physician in: 1 week. Test Results: Test results from this visit will be discussed in further detail at your follow- up appointment, if applicable. Please Follow Up With: Vicky Andino MD (surgeon) When: 2 weeks. Proposed Discharge Date: 07/28/19
--- NOTE | 2019-07-28 08:54 | DS.PCM_ITS ---
Discharge Date and Diagnosis - Problem List Patient Problems: Active and Suspected Problems Debility (Acute) Pneumoperitoneum (Acute) Perforated diverticulum (Acute) Diverticular disease of intestine with perforation and abscess (Acute) Sigmoid diverticulitis (Acute) Date of Admission: 07/10/19 Date of Discharge: 07/28/19 - Primary Discharge Diagnosis Active and Suspected Problems Debility (Acute) Pneumoperitoneum (Acute) Perforated diverticulum (Acute) Diverticular disease of intestine with perforation and abscess (Acute) Sigmoid diverticulitis (Acute) - Secondary Discharge Diagnosis Chronic Problems Coronary artery disease (Chronic) Hiatal hernia (Chronic) Alzheimer disease (Chronic) BPH (benign prostatic hyperplasia) (Chronic) Diabetes mellitus (Chronic) Stenosis of esophagus (Chronic) HTN (hypertension) (Chronic) HLD (hyperlipidemia) (Chronic) Coronary atherosclerosis of [place] coronary artery (Chronic) Hx of CABG (Chronic) Hospital Course and Treatment Imaging Results: 07/14/19 14:45 Diet: Regular Diet Type of Dietary Supplement:: Ensure Complete Is pt able to select menu?: Yes Clinical Impression(s) from Imaging Studies Abdomen X-Ray 07/21/19 12:45 IMPRESSION: Moderate amount of fecal material is seen in the colon. Electronically Signed: Dominik Barriga, at 13:22 EDT , Service support , Consultations 07/10/19 22:31 Consult: Onc/Wound/nuisance wildlife trapper Routine Comment: Reason for Consult:: new ostomy near reddened/draining midline incision Operations: None Procedures: None Summary of Care Provided: The patient is a 79 year old Male with below past medical history hospitalized for pneumoperitoneum secondary to perforated diverticulitis with abscess, underwent exploratory laparotomy with Beatriz's procedure, admitted to TCU with debility, here for rehabilitation, strengthening, prior to discharge home with spouse. Discharge home with family, [facility] for PT/OT, Home Health Aide thru [place]. Patient Problems: Active and Suspected Problems Debility (Acute) Pneumoperitoneum (Acute) Perforated diverticulum (Acute) Diverticular disease of intestine with perforation and abscess (Acute) Sigmoid diverticulitis (Acute) - Physical Exam Vital Signs Temp Pulse Resp BP Pulse Ox 98.4 F 64 18 123/45 H 96 07/27/19 16:00 07/27/19 16:00 07/27/19 16:00 07/27/19 16:00 07/27/19 16:00 Oxygen Delivery Method Room Air Weight: 72.802 kg Body Mass Index (BMI) 25.4 Orthostatic Vital Signs Start: 07/27/19 08:38 Freq: q24h Status: Active Protocol: Activity Type Activity Date Activity User E-Sign Co-Sign Detail Recorded Client Recorded Date Recorded By Document 07/27/19 08:38 PG [id number] 07/27/19 14:40 PG 07/27/19 08:38 Orthostatic Vitals Standing -Blood Pressure (90/60-120/80) 82/37 L -Extremity Use Right Arm -Pulse Rate (60-100) 86 Sitting -Blood Pressure (90/60-120/80) 120/45 L -Extremity Use Right Arm -Pulse Rate (60-100) 77 Lying -Blood Pressure (90/60-120/80) 148/46 H -Extremity Use Right Arm -Pulse Rate (60-100) 87 Intake and Output for Last 24 Hours 07/26/19 07/27/19 07/28/19 23:59 23:59 23:59 Intake Total 1200 / 1200 720 / 720 120 / 120 Output Total 175 / 175 250 / 250 Balance 1025 / 1025 470 / 470 120 / 120 Discharge Diet: No Restrictions Discharge Activity: Return to Normal Activity, May Shower, Use Walker Weight Bearing Status: Weight bearing as tolerated Call your doctor if you observe: Fever of 101 or Higher, Inability to urinate, Inability to have a bowel movement, Shortness of breath, Chest pain, Uncontrolled pain Home Medications: Medications to take at Discharge Atorvastatin Calcium 80 mg PO DAILY 02/13/18 Cholecalciferol (Vitamin D3) [Vitamin D3] 2,000 unit PO DAILY 02/13/18 Finasteride [Proscar] 5 mg PO DAILY 02/13/18 Sertraline HCl [Zoloft] 50 mg PO DAILY 02/13/18 Cyanocobalamin (Vitamin B-12) [B-12] 1,000 mcg PO DAILY 07/03/19 Donepezil HCl [Aricept] 5 mg PO QHS 07/03/19 Ezetimibe [Zetia] 10 mg PO DAILY 07/03/19 Lisinopril [Zestril] 40 mg PO DAILY 07/03/19 Terazosin HCl 10 mg PO DAILY 07/03/19 Acetaminophen [Tylenol Extra Strength] 1,000 mg PO Q6H PRN PRN 07/10/19 Acetaminophen [Tylenol] 1,000 mg PO Q6H PRN PRN tablet 07/28/19 Iron Polysaccharide Complex [Ferrex 150] 150 mg PO DAILYCM #30 cap 07/28/19 Loratadine [Claritin] 10 mg PO DAILY PRN tablet 07/28/19 Menthol/Lanolin/Calamine/Znox [Calmoseptine Ointment] 1 applic TOPICAL 0600,2200 tube 07/28/19 Midodrine HCl [Proamatine] 5 mg PO TID #90 tab 07/28/19 Nystatin Powder [Mycostatin Powder] 1 applic TOPICAL 0600,2200 bottle 07/28/19 Pantoprazole Sodium [Protonix] 40 mg PO DAILY #30 tab 07/28/19 Following Prescrptions Were Given to Patient: Iron Polysaccharide Complex [Ferrex 150] 150 mg PO DAILYCM #30 cap Prescription Printed Midodrine HCl [Proamatine] 5 mg PO TID #90 tab Prescription Printed Pantoprazole Sodium [Protonix] 40 mg PO DAILY #30 tab Prescription Printed Primary Care Physician: Santo Nick MD [Primary Care Provider] - Please follow up with your Primary Care Physician in: 1 week. Please Follow Up With: Vicky Andino MD (surgeon) When: 2 weeks. Disposition: Home with Home Health Minutes spent on discharge:: 35 Patient Condition:: Stable Medical Necessity - Tobacco Use Smoking Status: Former smoker Tobacco Use: Non-smoker Meaningful Use Info Meaningful Use Diagnoses (Choose all that apply): None applicable
--- NOTE | 2019-07-28 08:56 | PCM.PN.HH ---
Home Health Note - Plan Overview of reason of hospitalization: The patient is a 79 year old Male with below past medical history hospitalized for pneumoperitoneum secondary to perforated diverticulitis with abscess, underwent exploratory laparotomy with Beatriz's procedure, admitted to TCU with debility, here for rehabilitation, strengthening, prior to discharge home with spouse. Discharge home with family, [facility] for PT/OT, Home Health Aide thru [place]. Problems: Patient was seen for Debility (Acute) Pneumoperitoneum (Acute) Perforated diverticulum (Acute) Diverticular disease of intestine with perforation and abscess (Acute) Sigmoid diverticulitis (Acute) Coronary artery disease (Chronic) Hiatal hernia (Chronic) Alzheimer disease (Chronic) BPH (benign prostatic hyperplasia) (Chronic) Diabetes mellitus (Chronic) Complete List of Medical Problems Debility (Acute) Pneumoperitoneum (Acute) Perforated diverticulum (Acute) Diverticular disease of intestine with perforation and abscess (Acute) Sigmoid diverticulitis (Acute) Coronary artery disease (Chronic) Hiatal hernia (Chronic) Alzheimer disease (Chronic) BPH (benign prostatic hyperplasia) (Chronic) Diabetes mellitus (Chronic) Stenosis of esophagus (Chronic) HTN (hypertension) (Chronic) HLD (hyperlipidemia) (Chronic) Coronary atherosclerosis of [place] coronary artery (Chronic) Hx of CABG (Chronic) - Requirements and Reasons Disciplines Needed/Ordered: Physical Therapy Reason for Disciplines: Disease Specific Monitoring/education, Medication Management/Knowledge Deficit, Ostomy Care, Gait Training, Stair Training, Fall Prevention, Home Safety/Equipment Instruction, Balance and/or Posture Training, Transfer Training, Swallowing Exercise/Education, Improvement in Communication Related To: Change in Medical Treatment Plan, Limited/Poor Endurance, Shortness of Breath with Activity, Physical Impairments, Unsteady Gait/Balance, Intractable Pain, Fall Risk Patient is unable to leave the home: Without Aid of Supportive Devices (crutches, cane, wheelchair, walker), Without the assistance of another person - Additional Disciplines Additional Disciplines Needed/Ordered: Occupational Therapy
[2019-07-28 10:30] VITALS: PULSE 81; RESP 18; O2SAT 98
--- NOTE | 2019-07-28 10:35 | NURSING ---
Pt had taken a shower and plans to go home this afternoon. pt ambulated into the bathroom. was able to demonstrate how to empty his appliance into the toilet. pt did have a small BM form the rectum as well. assured patient that it is just residual stool and this is normal. patient back into the bed. the ostomy appliance was changed again with the . pt was able to verbalize the steps of changing the appliance. the midline abdominal incision is nearly healed. could leave POSTAL SUPERINTENDENT, but prefers to keep covered at this time. cleansed the incision with soap and water. rinsed and pat dry. placed Aquacel AG ribbon and covered with VAC drape. applied a 1 piece flat [place] appliance with a oval convex barrier ring. placed a small bead of paste in the small crease near the midline incision. Pt tolerated well. plan is for pt to be discharged home this afternoon after lunch. pt will have home health at home. the script for the ostomy supplies had been given to MARIA E Guerin earlier this week for home health. pt and family deny further questions at this time.
--- NOTE | 2019-07-28 11:29 | NURSING ---
CASSANDRARN/WOUND NURSE IN TO CHANGE PT OSTOMY.
[2019-07-28 13:53] VITALS: BP 127/43; PULSE 59; RESP 18; TEMP 36.9; O2SAT 97
--- NOTE | 2019-08-02 08:33 | MDS.RN ---
IPA/DC MDS assessment completed, waiting to finalize assessments per [facility] Information Systems instructions. Information for the mds was obtained from review of the clinical record, interview of resident, staff, and direct observation of resident's care.
== END 2019-07-28 14:10 | disposition home health service (06) | DRG 949 ==
PROVIDERS: Admitting Provider Family Medicine Geriatric Medicine; Family Provider Family Medicine; PCP Family Medicine; Referring Provider Family Medicine Geriatric Medicine; Visit Provider Family Medicine Geriatric Medicine
DX: Z48.815 Encounter for surgical aftercare following surgery on the digestive system (principal); L03.818 Cellulitis of other sites; I25.10 Atherosclerotic heart disease of native coronary artery without angina pectoris; E78.5 Hyperlipidemia, unspecified; F02.80 Dementia in other diseases classified elsewhere, unspecified severity, without behavioral disturbance, psychotic disturbance, mood disturbance, and anxiety; G30.9 Alzheimer's disease, unspecified; K21.9 Gastro-esophageal reflux disease without esophagitis; F32.9 Major depressive disorder, single episode, unspecified; N40.1 Benign prostatic hyperplasia with lower urinary tract symptoms; R33.8 Other retention of urine; I10 Essential (primary) hypertension; E11.9 Type 2 diabetes mellitus without complications; Z93.3 Colostomy status; Z95.1 Presence of aortocoronary bypass graft; Z87.891 Personal history of nicotine dependence; N28.89 Other specified disorders of kidney and ureter
CPT/HCPCS: 36415; 74019; 80048; 80053; 85025; 97110; 97116; 97162; 97166; 97530; 97535; 97802; J7030

== ENCOUNTER 2020-06-22 19:56 | Emergency (ER) | payer MEDICARE, SELFPAY ==
[2020-06-22 19:57] VITALS: BP 136/78; PULSE 58; RESP 18; TEMP 36.4; O2SAT 97; BMI 27.6
--- NOTE | 2020-06-22 20:37 | ED.VIS.GEN ---
History of Present Illness Chief Complaint: Rash Informant: Patient Narrative: 80-year-old male presenting with itching rash on the anterior left side of his neck. He states is been there for about 2 weeks. States his rash started after mowing the yard. He does not he got into any poison rudy. He has not had any weeping or vesicles on his neck. He states he is not had any systemic signs or symptoms such as fever, chills, nausea, vomiting. He denies any new soaps, dyes, detergents, linens etc. prior to the onset of the rash. He states he has been trying different lotions on it afterwards to try to get it better. - Past Medical History (1) Alzheimer disease Status: Chronic (2) BPH (benign prostatic hyperplasia) Status: Chronic (3) Coronary artery disease Status: Chronic Past Medical History - Allergies and Home Meds Allergies/Adverse Reactions: Allergies morphine Allergy (Verified 06/22/20 19:57) Itching oxycodone [From OxyIR] Adverse Reaction (Verified 06/22/20 19:57) Other Primary Care Physician: Santo Nick MD [Primary Care Provider] - Past Medical History: - - Reviewed in problem list Surgical History: coronary bypass surgery, - - Exploratory Laparotomy with Beatriz's procedure. Lives: Spouse/ Significant Other Smoking Status: Former smoker Alcohol: None Drugs: None - Family History Maternal Family History: Reports: No pertinent history Paternal Family History: Reports: No pertinent history Review of Systems General: Denies: Chills, Fever, Sweats Eyes: Denies: Visual changes - bilaterally, Diplopia ENT: Denies: Rhinorrhea, Sore throat Cardiovascular: Denies: Chest pain, Palpitations Respiratory: Denies: Dyspnea, Cough, Dyspnea on exertion Genitourinary: Denies: Dysuria, Hematuria, Frequency Musculoskeletal: Denies: Back pain, Extremity Pain Skin: Reports: Rash - Left side of neck Neurological: Denies: Headache, Weakness, Numbness Physical Exam Vital Signs/Narrative: Vital Signs Temp Pulse Resp BP Pulse Ox 06/22/20 19:57 97.5 F L 58 L 18 136/78 H 97 Inital Vital Signs reviewed: Yes General: Well nourished, Well developed, No Acute Distress Head: Normocephalic, Atraumatic Eyes: Perrl, EOMI ENT: Moist mucous membranes Neck: Supple, Nontender Skin: Rash - Mild erythema to the left side of the neck and the left side of his jaw. There is no vesicles or weeping. There is no induration to suggest cellulitis. He is nontender to palpation. Neurological: Alert, Oriented x3 Psychological: Normal affect Diagnostic/Tx/Re-eval Patient has a pruritic rash on the left side of his jaw and neck. Does not appear to be poison rudy dermatitis or similar dermatitis. He does describe it as itching and not painful. He is not have any systemic signs or symptoms and it does not look like cellulitis. I will start him on prednisone for home to see if this improves his rash as I feel like it is likely allergic. I am unsure of the source. Patient is given return precautions. Impression: 1. Dermatitis ED Disposition - Plan for ED Patient: Disposition: Home or Assisted Living Instructions: ED General Allergic Reactions Prescriptions: MethylPREDNISolone DosePak [Medrol DosePak] 4 mg PO UD #1 box Prescription Printed Referrals: Santo Nick MD [Primary Care Provider] -
[2020-06-22] MEDS: predniSONE 20 MG Tablet 60 MG PO (21:18)
== END 2020-06-22 21:21 | disposition home or self-care (01) ==
PROVIDERS: Emergency Provider Student in an Organized Health Care Education/Training Program; PCP Family Medicine
DX: L30.9 Dermatitis, unspecified (principal); G30.9 Alzheimer's disease, unspecified; I25.10 Atherosclerotic heart disease of native coronary artery without angina pectoris; Z87.891 Personal history of nicotine dependence; Z79.82 Long term (current) use of aspirin
CPT/HCPCS: 99283

== ENCOUNTER 2021-10-11 18:18 | Emergency (ER) | payer OTHER, SELFPAY ==
[2021-10-11 18:19] VITALS: BP 188/77; PULSE 62; RESP 16; TEMP 36.2; O2SAT 98; BMI 22.9
--- NOTE | 2021-10-11 19:09 | RAD_ITS ---
INDICATION: AMS EXAMINATION/TECHNIQUE: X-RAY - XR Chest 1 View COMPARISON: 02/14/1980 FINDINGS: LIFE-SUPPORT AND LINES: 1. Mediastinal wires and vascular clips present HEART AND VESSELS: The cardiac silhouette, pulmonary vasculature have normal appearance. No evidence of congestive failure. LUNGS AND PLEURAL SPACES: Lungs are clear. No focal infiltrate, consolidation or effusions. No evidence of pneumothorax. No pulmonary mass is noted. MEDIASTINUM AND HILAR REGIONS: No masses adenopathy noted. No areas of calcification. Visualized upper airway is normal in position. BONY ELEMENTS: No acute bony changes noted. RAD/Chest 1 View (Portable) IMPRESSION: 1. Postop change of prior CABG. 2. No evidence of acute cardiopulmonary process Electronically Signed: Surinder Montemayor MD at 19:55 EST Tel , Service support ,
--- NOTE | 2021-10-11 19:23 | EDS_ITS ---
HPI HPI - Psych History of Present Illness Chief Complaint: Mental Health Narrative Narrative: 81-year-old male with history of dementia presenting with his family out of concern for episodes where he is a little more aggressive than usual. Patient's also been hallucinating some as well. This appears to happen at night. Patient family concerned that he might have a urinary tract infection as he has had a history of prostate issues and he also has some urinary incontinence issues which have progressed. In addition to this her [facility] told him he needed to come to the emergency room to have blood work and urinalysis testing and then [facility] for [facility]iatrics. Patient is not had any nausea, vomiting. No diarrhea or constipation. He has not had any head injury. His family reports that he eats and drinks normally. [facility] Medical History Alzheimer disease BPH (benign prostatic hyperplasia) CAD (coronary artery disease) Diabetes mellitus Hiatal hernia HTN (hypertension) Hyperlipemia Home Medications cholecalciferol (vitamin D3) [Vitamin D3] 2,000 unit PO DAILY 02/13/18 [History Last Taken Unknown] finasteride 5 mg PO DAILY 02/13/18 [History Last Taken Unknown] sertraline [Zoloft] 50 mg PO DAILY 02/13/18 [History Last Taken Unknown] cyanocobalamin (vitamin B-12) 1,000 mcg PO DAILY 07/03/19 [History Last Taken Unknown] donepezil 5 mg PO QHS 07/03/19 [History Last Taken Unknown] lisinopril 40 mg PO DAILY 07/03/19 [History Last Taken Unknown] amlodipine 5 mg PO DAILY 06/22/20 [History Last Taken Unknown] aspirin 325 mg PO DAILY 06/22/20 [History Last Taken Unknown] rosuvastatin 5 mg PO QHS 06/22/20 [History Last Taken Unknown] Allergy/AdvReac Type Severity Reaction Status Date / Time morphine Allergy Itching Verified 10/11/21 18:23 oxycodone [From OxyIR] AdvReac Other Verified 10/11/21 18:23 Surgical History Hx of CABG Social History Smoking Status: Former smoker ROS ROS ED ENT ENT ED: Denies rhinorrhea or sore throat Cardiovascular Cardiovascular: Denies chest pain or palpitations Respiratory/Chest Respiratory/Chest: Denies dyspnea Gastrointestinal Gastrointestinal: Denies abdominal pain, nausea or vomiting Genitourinary Genitourinary ED: Reports other Musculoskeletal Musculoskeletal: Denies arthralgias or myalgias Integumentary Denies rash Neurologic Neurologic: Denies headache(s) or paresthesias Psychiatric Psychiatric: Denies anxiety or depression EXAM Physical Exam Const Vital Signs: 10/11/21 18:19 Temperature 97.2 F L Temperature Source Temporal Pulse Rate 62 Respiratory Rate 16 Blood Pressure 188/77 H Blood Pressure Mean 114 Pulse Ox 98 Oxygen Delivery Method Room Air Positive well nourished General Appearance ED: NAD; Negative for pallor HEENT normocephalic and atraumatic Eyes PERRL and EOMs intact bilaterally Resp normal respiratory effort and clear to auscultation bilaterally Cardio Rate: regular rate Rhythm: regular rhythm Neuro CN's II-XII intact bilaterally Sensorium / Orientation: alert Psych Appearance: grossly normal Skin General Skin Exam: Negative for jaundice or pallor Rashes: no rashes MDM MDM MDM Narrative Medical decision making narrative: Patient presenting today for evaluation. It sounds like he has a history of dementia and is sundowning at night. He was unable to obtain an office visit with his primary care physician. I did obtain a urinalysis and this is negative for infection. Creatinine is 2.10 which is near his baseline. CBC is unremarkable. I had a long discussion with social work and he and his family regarding admission and I do not believe that he acutely needs admitted to the psychiatric geriatric facility given that he has sundowning. I feel he only needs a follow-up with somebody that can manage his dementia. Social work was able to give him some information on Dr. Marin who had seen in the past who could help manage him. His family states that he did well with Haldol previously. They will discuss this with Dr. Marin after that he get a visit. Patient and family comfortable with discharge home at this time no return for any new or current symptoms. Impression: 1. History of dementia 2. Sundowning Lab Data Labs: Laboratory Results - last 24 hr 10/11/21 10/11/21 10/11/21 18:33 18:33 18:45 WBC 5.9 RBC 4.95 Hgb 13.4 Hct 41.9 MCV 84.6 MCH 27.1 MCHC 32.0 RDW Std Deviation 41.3 RDW Coeff of Joycelyn 13.3 Plt Count 148 L MPV 11.9 Immature Gran % (Auto) 0.200 Neut % (Auto) 52.7 Lymph % (Auto) 31.8 [place] % (Auto) 9.1 Eos % (Auto) 5.9 H Baso % (Auto) 0.3 Absolute Neuts (auto) 3.1 Absolute Lymphs (auto) 1.88 Nucleated RBC % 0 Sodium 141 Potassium 4.1 Chloride 106 Carbon Dioxide 31.0 Anion Gap 4 L BUN 44 H Creatinine 2.10 H Estim Creat Clear Calc 27.36 Est GFR (MDRD) Af Amer 39 L Est GFR (MDRD) Non-Af 32 L BUN/Creatinine Ratio 21.0 H Glucose 118 H Calcium 9.4 Urine Color Yellow Urine Clarity Clear Urine pH 6.5 Ur Specific [place] 1.010 Urine Protein 30 H Urine Glucose (UA) Normal Urine Ketones Negative Urine Occult Blood Negative Urine Nitrite Negative Urine Bilirubin Negative Urine Urobilinogen Normal Ur Leukocyte Esterase Negative Urine RBC 0 SEEN Urine WBC 0 SEEN Ur Squamous Epith Cells 0-5 SEEN Urine Bacteria 0 SEEN Urine Mucus 0 SEEN Radiography Diagnostic Testing: Clinical Impression(s) from Imaging Studies Chest X-Ray 10/11/21 19:09 IMPRESSION: 1. Postop change of prior CABG. 2. No evidence of acute cardiopulmonary process Electronically Signed: Surinder Montemayor MD at 19:55 EST Tel , Service support , Discharge Plan Triage Chief Complaint: Mental Health ED Provider: Eddie Soliman Dx/Rx/DC Orders Prescriptions: No Action sertraline [Zoloft] 50 MG tablet 50 mg PO DAILY RF: 0 cholecalciferol (vitamin D3) [Vitamin D3] 2,000 UNIT capsule 2,000 unit PO DAILY RF: 0 finasteride 5 MG tablet 5 mg PO DAILY RF: 0 donepezil 5 MG tablet 5 mg PO QHS RF: 0 cyanocobalamin (vitamin B-12) 1,000 MCG tablet 1,000 mcg PO DAILY RF: 0 lisinopril 40 MG tablet 40 mg PO DAILY RF: 0 amlodipine 5 MG tablet 5 mg PO DAILY RF: 0 aspirin 81 MG tablet,delayed release (DR/EC) 325 mg PO DAILY RF: 0 rosuvastatin 5 MG tablet 5 mg PO QHS RF: 0
[2021-10-11 19:30] LABS: Absolute Lymphocyte Count 1.88 X10^3/uL (0.83-4.51); Absolute Neutrophil Count 3.1 X10^3/uL (2.0-7.7); Basophil# 0.02 X10^3/uL; Basophil% 0.3 % (0-1); Eosinophil# 0.35 X10^3/uL; Eosinophils% 5.9 % (0-5); Hematocrit 41.9 % (40-54); Hemoglobin 13.4 g/dL (13.0-16.5); Lymphocyte # 1.88 X10^3/ul (0.83-4.51); Lymphocyte % 31.8 % (19-41); Mean Corpuscular Hgb 27.1 pg (27.0-32.0); Mean Corpuscular Volume 84.6 fL (80-94); Mean Platelet Vol. 11.9 fl (6.2-12.0); Monocyte# 0.54 X10^3/uL; Monocyte% 9.1 % (0-10); NRBC Flagged by Analyzer 0 % (0-5); Neutrophil # 3.12 X10^3/uL (2.7-7.7); Neutrophil % 52.7 % (47-70); Platelet Count 148 K/mm3 (150-450); RBC Distribution Width CV 13.3 % (11.6-14.6); RBC Distribution Width SD 41.3 fl (35.1-43.9); Red Blood Count 4.95 M/mm3 (4.6-6.2); White Blood Count 5.9 K/mm3 (4.4-11.0)
[2021-10-11 19:31] LABS: Bacteria 0 SEEN /hpf (None Seen); Mucous, Urine 0 SEEN /hpf (<or=2+); Red Blood Cells-Urine 0 SEEN /hpf (0-5); White Blood Cells 0 SEEN /hpf (0-5)
[2021-10-11 19:44] LABS: Color, Urine Yellow (Yellow); Glucose, Dipstick Normal (Normal); Ketone-Dipstick Negative (Negative); Leukocyte Esterase-Dipstick Negative /ul (Negative); Nitrite-Dipstick Negative (Negative); Occult Blood-Urine Negative /ul (Negative); Protein-Dipstick 30 mg/dl (Negative); Urine Bilirubin Dipstick Negative (Negative); Urine Clarity Clear (Clear); Urine Urobilinogen Normal (Normal); Urine pH 6.5 (5.0 - 8.0)
[2021-10-11 19:58] LABS: Anion Gap 4 (5-15); BUN 44 mg/dL (7-18); Calcium,Total 9.4 mg/dL (8.5-10.1); Chloride 106 mmol/L (98-107); EST Glomerular Filtration Rate 32 mL/min (>60); Est Glom Filt Rate - Afr Amer 39 mL/min (>60); Estimated Creatinine Clearance 27.36 ml/min; Glucose 118 mg/dL (74-106); Potassium 4.1 mmol/L (3.5-5.1); Sodium Level 141 mmol/L (136-145)
[2021-10-11 20:02] LABS: Squamous Epithelial Cells - UA 0-5 SEEN /hpf (0-5)
--- NOTE | 2021-10-11 20:09 | EKG12_ITS ---
Test Reason : DYSRHYTHMIA Blood Pressure : / mmHG Vent. Rate : 056 BPM Atrial Rate : 056 BPM P-R Int : 284 ms QRS Dur : 094 ms QT Int : 434 ms P-R-T Axes : 055 -22 103 degrees QTc Int : 418 ms Sinus bradycardia with 1st degree A-V block with occasional Premature ventricular complexes Left ventricular hypertrophy with repolarization abnormality Abnormal ECG Confirmed by TRAM BLEDSOE, BRITTANY ([id number]), editorial assistant SHAUNA CALLOWAY ([id number]) on 10/16/2021 9:34:05 AM Referred By: DAYANA Confirmed By:BRITTANY UGALDE MD
[2021-10-11 20:19] VITALS: RESP 15
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
== END 2021-10-11 21:10 | disposition home or self-care (01) ==
PROVIDERS: Emergency Provider Student in an Organized Health Care Education/Training Program
DX: G30.9 Alzheimer's disease, unspecified (principal); F02.81 Dementia in other diseases classified elsewhere, unspecified severity, with behavioral disturbance; F05 Delirium due to known physiological condition; I25.10 Atherosclerotic heart disease of native coronary artery without angina pectoris; I10 Essential (primary) hypertension; E11.9 Type 2 diabetes mellitus without complications; E78.5 Hyperlipidemia, unspecified; N40.0 Benign prostatic hyperplasia without lower urinary tract symptoms; Z95.1 Presence of aortocoronary bypass graft; Z79.82 Long term (current) use of aspirin; Z79.899 Other long term (current) drug therapy; Z87.891 Personal history of nicotine dependence
CPT/HCPCS: 71045; 80048; 81001; 85025; 87426; 93005; 99283; A4216

== ENCOUNTER 2022-01-07 13:33 | Emergency (ER) | payer OTHER, SELFPAY ==
[2022-01-07 13:34] VITALS: BP 146/57; PULSE 62; RESP 16; TEMP 36.6; O2SAT 95; BMI 24.3
--- NOTE | 2022-01-07 14:09 | EKG12_ITS ---
Test Reason : CP Blood Pressure : / mmHG Vent. Rate : 056 BPM Atrial Rate : 056 BPM P-R Int : 266 ms QRS Dur : 080 ms QT Int : 436 ms P-R-T Axes : 059 -16 009 degrees QTc Int : 420 ms Sinus bradycardia with 1st degree A-V block Septal infarct , age undetermined Abnormal ECG Confirmed by TRMA BLEDSOE, BRITTANY ([id number]), material expeditor SHAUNA CALLOWAY ([id number]) on 01/10/2022 9:28:21 AM Referred By: JORDYN/JOHN Confirmed By:BRITTANY UGALDE MD
--- NOTE | 2022-01-07 14:10 | ED.VIS.CHEST ---
HPI History of Present Illness Chief Complaint: Chest Pain Narrative Narrative: with history of dementia presenting with reported history of chest [id number] male x2. This was reported by his daughter. Patient is a poor informant himself. Apparently he and his live in [place] for the last 3 weeks. His recently admitted for Hip surgery and he has been coming to visit her daily for the last 5 days. His daughter states that he has not been sleeping at night which is likely secondary to dementia. He reported that he had been having some chest tightness and a headache and felt off. His daughter had him go to their house to try to sleep and see if he felt better at which point he called and said that he was having chest tightness and sounded like he was having shortness of breath on the phone. Patient has significant history of CAD, CABG, hyperlipidemia, hypertension. They are concerned for a cardiac cause of his pain however he also has a history of esophageal spasms and has had to have his esophagus dilated several times in the past by Dr. Davis who they no longer see. They state that this has been an active heart attack several times. Patient reports that he does have some difficulty swallowing currently but is able to swallow his own secretions. [facility] Medical History Alzheimer disease BPH (benign prostatic hyperplasia) CAD (coronary artery disease) Diabetes mellitus Hiatal hernia HTN (hypertension) Hyperlipemia Home Medications cholecalciferol (vitamin D3) [Vitamin D3] 2,000 unit PO DAILY 02/13/18 [History Last Taken Unknown] finasteride 5 mg PO DAILY 02/13/18 [History Last Taken Unknown] sertraline [Zoloft] 50 mg PO DAILY 02/13/18 [History Last Taken Unknown] cyanocobalamin (vitamin B-12) 1,000 mcg PO DAILY 07/03/19 [History Last Taken Unknown] donepezil 10 mg PO QHS 07/03/19 [History Last Taken Unknown] lisinopril 40 mg PO DAILY 07/03/19 [History Last Taken Unknown] amlodipine 5 mg PO DAILY 06/22/20 [History Last Taken Unknown] aspirin 325 mg PO DAILY 06/22/20 [History Last Taken Unknown] rosuvastatin 40 mg PO QHS 06/22/20 [History Last Taken Unknown] Allergy/AdvReac Type Severity Reaction Status Date / Time morphine Allergy Itching Verified 01/07/22 13:38 oxycodone [From OxyIR] AdvReac Other Verified 01/07/22 13:38 Surgical History Hx of CABG Social History Smoking Status: Former smoker ROS ROS ED Constitutional Constitutional ED: Denies chills or fever(s) Eyes Eyes: Denies blurry vision or change in vision ENT ENT ED: Denies rhinorrhea or sore throat Cardiovascular Cardiovascular: Reports as per HPI Respiratory/Chest Respiratory/Chest: Reports dyspnea; Denies cough or dyspnea on exertion Gastrointestinal Gastrointestinal: Denies abdominal pain, nausea or vomiting Genitourinary Genitourinary ED: Denies dysuria or hematuria Musculoskeletal Musculoskeletal: Denies arthralgias or myalgias Integumentary Denies rash Neurologic Neurologic: Reports headache(s); Denies paresthesias or weakness Psychiatric Psychiatric: Reports anxiety; Denies depression, suicidal ideation or suicidal thoughts EXAM Physical Exam Const Vital Signs: 01/07/22 13:34 01/07/22 14:04 01/07/22 14:13 Temperature 97.8 F Temperature Source Temporal Pulse Rate 62 Respiratory Rate 16 Respiratory Effort Short of Breath Blood Pressure 146/57 H Blood Pressure Mean 86 Pulse Ox 95 Oxygen Delivery Method Room Air Room Air 01/07/22 15:06 01/07/22 16:21 01/07/22 17:10 Temperature Temperature Source Pulse Rate 65 59 L 54 L Respiratory Rate 18 18 19 H Respiratory Effort Blood Pressure 160/63 H 171/96 H 153/75 H Blood Pressure Mean 95 121 101 Pulse Ox 98 98 98 Oxygen Delivery Method Room Air Room Air Positive well nourished General Appearance ED: NAD; Negative for pallor HEENT Reports moist mucous membranes normocephalic and atraumatic Eyes PERRL and EOMs intact bilaterally Neck no lymphadenopathy and supple Chest Wall inspection of chest normal and palpation of chest normal Resp normal respiratory effort Effort and Inspection: respiratory distress Cardio regular rate and regular rhythm Extremity normal to inspection General Extremety ED: Negative for edema or tenderness General Extremity: Negative for edema Neuro CN's II-XII intact bilaterally and no sensory deficits noted Sensorium / Orientation: awake and alert Motor Exam: strength 5/5 throughout Skin no rashes or lesions noted General Skin Exam: Negative for jaundice or pallor Heart Score History: Moderately Suspicious Score: 1 MDM MDM MDM Narrative Medical decision making narrative: Patient presenting with chest pain and concerned that this could be cardiac although he also has history of esophageal spasm which feels similar nature. EKG on my interpretation shows a sinus bradycardia with a ventricular rate of 56 bpm with first-degree AV block. Chest x-ray my interpretation shows no acute cardiopulmonary process and radiologist agree. CBC and BMP unremarkable. Creatinine at baseline. High-sensitivity troponin is 10 and 10 again at 2 hours. Given patient's ultimately normal work-up, stable vital signs. I think he is okay to be discharged home and follow-up outpatient. I did give him a follow-up with Dr. Cardoza as he does have esophageal issues which may be the source of this. Patient amenable to this plan and discharged home in stable condition. Impression: 1. Chest pain Lab Data Attestation: I reviewed the patient's lab results. Labs: Laboratory Results - last 24 hr 01/07/22 01/07/22 01/07/22 14:05 14:05 16:10 WBC 7.5 RBC 5.29 Hgb 14.6 Hct 44.1 MCV 83.4 MCH 27.6 MCHC 33.1 RDW Std Deviation 39.7 RDW Coeff of Joycelyn 13.1 Plt Count 135 L MPV 12.7 H Immature Gran % (Auto) 0.300 Neut % (Auto) 61.1 Lymph % (Auto) 21.0 [place] % (Auto) 11.3 H Eos % (Auto) 6.0 H Baso % (Auto) 0.3 Absolute Neuts (auto) 4.6 Absolute Lymphs (auto) 1.57 Nucleated RBC % 0 Sodium 137 Potassium 4.2 Chloride 105 Carbon Dioxide 29.0 Anion Gap 3 L BUN 39 H Creatinine 1.65 H Estim Creat Clear Calc 32.82 Est GFR (MDRD) Af Amer 51 L Est GFR (MDRD) Non-Af 43 L BUN/Creatinine Ratio 23.6 H Glucose 108 H Calcium 8.8 Troponin I High Sens 10 10 Radiography Diagnostic Testing: Clinical Impression(s) from Imaging Studies Chest X-Ray 01/07/22 14:20 IMPRESSION: Stable examination. No acute abnormality is seen. Electronically Signed: Dominik Barriga MD at 14:38 EDT , Discharge Plan Triage Chief Complaint: Chest Pain ED Provider: Eddie Soliman Dx/Rx/DC Orders Instructions: ED Chest Pain, Noncardiac, ED Esophageal Spasm Prescriptions: No Action sertraline [Zoloft] 50 MG tablet 50 mg PO DAILY RF: 0 cholecalciferol (vitamin D3) [Vitamin D3] 2,000 UNIT capsule 2,000 unit PO DAILY RF: 0 finasteride 5 MG tablet 5 mg PO DAILY RF: 0 donepezil 5 MG tablet 10 mg PO QHS RF: 0 cyanocobalamin (vitamin B-12) 1,000 MCG tablet 1,000 mcg PO DAILY RF: 0 lisinopril 40 MG tablet 40 mg PO DAILY RF: 0 amlodipine 5 MG tablet 5 mg PO DAILY RF: 0 aspirin 81 MG tablet,delayed release (DR/EC) 325 mg PO DAILY RF: 0 rosuvastatin 5 MG tablet 40 mg PO QHS RF: 0 [facility] Referrals: Polo Cardoza DO [STAFF PHYSICIAN] - [facility] [Primary Care Provider] - Disposition Disposition: Home, Self Care Discharge Date/Time: 01/07/22 17:57
--- NOTE | 2022-01-07 14:20 | RAD_ITS ---
STUDY: X-RAY CHEST REASON FOR EXAM: Male, 81 years old. Chest pain TECHNIQUE: Single AP portable view of the chest. COMPARISON: Comparison is made with prior study dated 10/11/2021. FINDINGS: EKG electrodes are seen. The lungs are clear and expanded. There is no demonstrated pleural abnormality. Sternal cerclage wires and vascular clips are present from a prior sternotomy and coronary artery bypass graft procedure (CABG). Normal mediastinum and grace. Normal visualized pulmonary arteries. There is atherosclerotic calcification of the aortic arch with tortuosity. Normal visualized thoracic spine. Normal visualized ribs, clavicles, and shoulders. There is no demonstrated abnormality of the visualized soft tissue structures of the upper abdomen. RAD/Chest 1 View (Portable) IMPRESSION: Stable examination. No acute abnormality is seen. Electronically Signed: Dominik Barriga MD at 14:38 EDT ,
[2022-01-07 14:21] LABS: Absolute Lymphocyte Count 1.57 X10^3/uL (0.83-4.51); Absolute Neutrophil Count 4.6 X10^3/uL (2.0-7.7); Basophil# 0.02 X10^3/uL; Basophil% 0.3 % (0-1); Eosinophil# 0.45 X10^3/uL; Hematocrit 44.1 % (40-54); Hemoglobin 14.6 g/dL (13.0-16.5); Lymphocyte # 1.57 X10^3/ul (0.83-4.51); Mean Corp Hgb Conc 33.1 g/dL (32-36); Mean Corpuscular Hgb 27.6 pg (27.0-32.0); Mean Corpuscular Volume 83.4 fL (80-94); Mean Platelet Vol. 12.7 fl (6.2-12.0); Monocyte# 0.84 X10^3/uL; Monocyte% 11.3 % (0-10); NRBC Flagged by Analyzer 0 % (0-5); Neutrophil # 4.56 X10^3/uL (2.7-7.7); Neutrophil % 61.1 % (47-70); Platelet Count 135 K/mm3 (150-450); RBC Distribution Width CV 13.1 % (11.6-14.6); RBC Distribution Width SD 39.7 fl (35.1-43.9); Red Blood Count 5.29 M/mm3 (4.6-6.2); White Blood Count 7.5 K/mm3 (4.4-11.0)
[2022-01-07 14:40] LABS: Anion Gap 3 (5-15); BUN 39 mg/dL (7-18); BUN/Creat Ratio 23.6 RATIO (10-20); Calcium,Total 8.8 mg/dL (8.5-10.1); Chloride 105 mmol/L (98-107); Creatinine, Serum 1.65 mg/dL (0.70-1.30); EST Glomerular Filtration Rate 43 mL/min (>60); Est Glom Filt Rate - Afr Amer 51 mL/min (>60); Estimated Creatinine Clearance 32.82 ml/min; Glucose 108 mg/dL (74-106); Potassium 4.2 mmol/L (3.5-5.1); Sodium Level 137 mmol/L (136-145); Troponin-I HS 10 pg/mL (3.0-78.0)
[2022-01-07 15:06] VITALS: BP 160/63; PULSE 65; RESP 18; O2SAT 98
[2022-01-07 16:21] VITALS: BP 171/96; PULSE 59; RESP 18; O2SAT 98
[2022-01-07 16:51] LABS: Troponin-I HS 10 pg/mL (3.0-78.0)
[2022-01-07 17:10] VITALS: BP 153/75; PULSE 54; RESP 19; O2SAT 98
== END 2022-01-07 17:57 | disposition home or self-care (01) ==
PROVIDERS: Emergency Provider Student in an Organized Health Care Education/Training Program; Visit Provider Student in an Organized Health Care Education/Training Program
DX: R07.9 Chest pain, unspecified (principal); G30.9 Alzheimer's disease, unspecified; F02.80 Dementia in other diseases classified elsewhere, unspecified severity, without behavioral disturbance, psychotic disturbance, mood disturbance, and anxiety; E11.9 Type 2 diabetes mellitus without complications; R06.02 Shortness of breath; I10 Essential (primary) hypertension; E78.5 Hyperlipidemia, unspecified; I25.10 Atherosclerotic heart disease of native coronary artery without angina pectoris; I44.0 Atrioventricular block, first degree; N40.0 Benign prostatic hyperplasia without lower urinary tract symptoms; Z79.82 Long term (current) use of aspirin; Z79.899 Other long term (current) drug therapy; I25.2 Old myocardial infarction; Z95.1 Presence of aortocoronary bypass graft; Z87.891 Personal history of nicotine dependence
CPT/HCPCS: 71045; 80048; 84484; 85025; 93005; 99283; A4216

== ENCOUNTER 2022-07-30 16:02 | Emergency (ER) | payer OTHER, SELFPAY ==
[2022-07-30 16:03] VITALS: BP 168/77; PULSE 64; RESP 16; TEMP 36.8; O2SAT 98; BMI 24.9
--- NOTE | 2022-07-30 17:14 | CT_ITS ---
EXAM: CT HEAD WITHOUT INTRAVENOUS CONTRAST CLINICAL INDICATION: Change in Mental Status TECHNIQUE: Multiple axial images were obtained of the head without intravenous contrast. This CT exam was performed using one or more of the following dose reduction techniques: automated exposure control, adjustment of the mA and/or kV according to patient size, and/or use of iterative reconstruction technique. This report was created using [employer] report generation technology. COMPARISON: 12/03/2016 FINDINGS: BRAIN AND EXTRA-AXIAL SPACES: There is enlargement of the ventricular system and cortical sulci. There is hypoattenuation in the periventricular white matter. No intra- or extra-axial hemorrhage. No evidence of acute infarct. No intracranial mass or mass effect. There is preservation of the ruth/white matter interface. Posterior fossa structures are unremarkable. Basal cisterns are patent. BONES/JOINTS: Unremarkable. No discrete lytic or blastic abnormalities. SINUSES: Unremarkable as visualized. Clear. MASTOID AIR CELLS: Unremarkable. Clear. ORBITS: Visualized globes, extraocular muscles, optic nerves and retrobulbar fat appear unremarkable. CT/Brain/Head without Contrast IMPRESSION: 1. No acute intracranial abnormality. There has been no change from reference exam. 2. Stable underlying senescent change with small vessel ischemia. Electronically Signed: Hang Jacques MD at 19:04 EDT ,
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
[2022-07-30 17:47] LABS: Absolute Lymphocyte Count 1.71 X10^3/uL (0.83-4.51); Absolute Neutrophil Count 4.1 X10^3/uL (2.0-7.7); Basophil# 0.02 X10^3/uL; Basophil% 0.3 % (0-1); Eosinophil# 0.41 X10^3/uL; Eosinophils% 5.9 % (0-5); Hematocrit 43.2 % (40-54); Lymphocyte # 1.71 X10^3/ul (0.83-4.51); Lymphocyte % 24.5 % (19-41); Mean Corp Hgb Conc 32.4 g/dL (32-36); Mean Corpuscular Hgb 27.2 pg (27.0-32.0); Mean Platelet Vol. 12.3 fl (6.2-12.0); NRBC Flagged by Analyzer 0 % (0-5); Neutrophil # 4.13 X10^3/uL (2.7-7.7); Platelet Count 139 K/mm3 (150-450); RBC Distribution Width SD 39.9 fl (35.1-43.9); Red Blood Count 5.14 M/mm3 (4.6-6.2)
[2022-07-30 18:06] LABS: Anion Gap 6 (5-15); BUN 43 mg/dL (7-18); BUN/Creat Ratio 22.3 RATIO (10-20); Calcium,Total 9.1 mg/dL (8.5-10.1); Chloride 110 mmol/L (98-107); Creatinine, Serum 1.93 mg/dL (0.70-1.30); EST Glomerular Filtration Rate 35 mL/min (>60); Est Glom Filt Rate - Afr Amer 43 mL/min (>60); Estimated Creatinine Clearance 27.56 ml/min; Glucose 127 mg/dL (74-106); Potassium 4.3 mmol/L (3.5-5.1); Sodium Level 142 mmol/L (136-145); Thyroid Stim Hormone (TSH) 2.06 uIU/mL (0.358-3.74)
[2022-07-30 18:16] LABS: Alcohol, Blood (Medical)-Serum < 3.0 mg/dL
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
[2022-07-30 18:45] LABS: Amphetamine Urine VISTA NEGATIVE (<1000 ng/mL); Barbiturate Urine VISTA NEGATIVE (< 200 ng/mL); Benzodiazepine Urine VISTA NEGATIVE (< 200 ng/mL); Cocaine Urine VISTA NEGATIVE (< 300 ng/mL); Ecstacy Urine VISTA NEGATIVE (< 500 ng/mL); Methadone Urine VISTA NEGATIVE (< 300 ng/mL); PCP Urine VISTA NEGATIVE (< 25 ng/mL); THC Urine VISTA NEGATIVE (< 50 ng/mL); Vista UDS pH Range 4
[2022-07-30 19:28] LABS: Mucous, Urine 0 SEEN /hpf (<or=2+)
[2022-07-30] MEDS: LORazepam 0.5 MG Tablet PO (19:45)
[2022-07-30 19:54] VITALS: BP 173/67; PULSE 66; RESP 16; O2SAT 95
[2022-07-30 20:03] LABS: Color, Urine Yellow (Yellow); Glucose, Dipstick Normal (Normal); Ketone-Dipstick Negative (Negative); Leukocyte Esterase-Dipstick 25 /ul (Negative); Nitrite-Dipstick Negative (Negative); Occult Blood-Urine Negative /ul (Negative); Protein-Dipstick 100 mg/dl (Negative); Specific Gravity, Urine 1.015 (1.002-1.030); Urine Bilirubin Dipstick Negative (Negative); Urine Clarity Clear (Clear); Urine Urobilinogen Normal (Normal)
[2022-07-30 20:10] LABS: Bacteria RARE /hpf (None Seen); Red Blood Cells-Urine 0-5 SEEN /hpf (0-5); Squamous Epithelial Cells - UA 0-5 SEEN /hpf (0-5); White Blood Cells 0-5 SEEN /hpf (0-5)
--- NOTE | 2022-07-30 20:20 | CM.ED ---
MARIA E spoke to patient and his daughters. Lolita is daughter's name and she would like to be updated. [phone]. Daughters said that there preference would [facility] and then [facility]. Per our registration patient has secondary insurance but per [facility] patient does not have secondary insurance. MARIA E has called and left voice mail for bed control and transfer line. MARIA E will ask unit controller Ximena fax the patient's referral packet to the [facility] [phone]. MARIA E called transfer line at [facility] and left voice mail to call the ED regarding admission of patient for psych. MARIA E had spoken to psych obs earlier and they said that they had bed. Plan: Inpatient psych L[facility] ACOSTA
[2022-07-30 22:00] VITALS: RESP 16
[2022-07-30 23:19] VITALS: RESP 16
[2022-07-31] VITALS (7 sets, daily range): BP systolic 138–224; BP diastolic 77–89; PULSE 66–82; RESP 16–18; TEMP 36.4–36.8; O2SAT 97–100
--- NOTE | 2022-07-31 06:21 | ED.RN ---
Lila from [facility] calls asking for patients diagnosis. States she will have a nurse call in when they get there around [id number].
--- NOTE | 2022-07-31 07:38 | EKG12_ITS ---
Test Reason : [facility] – [place] Blood Pressure : / mmHG Vent. Rate : 075 BPM Atrial Rate : 075 BPM P-R Int : 270 ms QRS Dur : 094 ms QT Int : 392 ms P-R-T Axes : 066 -09 165 degrees QTc Int : 437 ms Sinus rhythm with 1st degree A-V block Septal infarct , age undetermined ST & T wave abnormality, consider lateral ischemia Abnormal ECG Confirmed by IRMA BLEDSOE, OLMAN ([id number]), editor continuity and script SHAUNA CALLOWAY ([id number]) on 08/01/2022 1:49:02 P M Referred By: JORDYN Confirmed By:EUNICE SOLIS MD
--- NOTE | 2022-07-31 08:14 | ED.RN ---
CRISIS SAID [facility] DENIED PATIENT. [facility] NURSE SHOULD BE CALLING.
[2022-07-31] MEDS: Lisinopril 40 MG Tablet PO (10:51)
[2022-07-31] MEDS: amLODIPine 10 MG Tablet PO (10:51)
[2022-07-31] MEDS: Sertraline 100 MG Tablet PO (10:51)
--- NOTE | 2022-07-31 11:19 | CM.ED ---
Social Work Medical team updated this family welfare social work professor to have spoken with the [facility] and clinical information was faxed. [facility] reports to have a rene-psych unit but we will still review clinicals. Crisis updated. Patient denied [facility] due to insurance, [facility] being primary. Austyn NICKERSON, JOSES
--- NOTE | 2022-07-31 11:20 | CM.ED ---
Social Work Voicemail received from patient daughter, Lolita Ross. Lolita inquired about status of referral/placement for patient. This social sciences lecturer called Lolita back as provided number ([phone]), no answer. Voicemail left requesting return phone call. Will continue to follow. Austyn NICKERSON, ALIS
--- NOTE | 2022-07-31 11:36 | CM.ED ---
Social Work Telephone call received from patient daughter, Lolita. This social welfare clerk able to updated Lolita on status of referral. Lolita thanked this social welfare clerk. Austyn NICKERSON, ROSA-S
--- NOTE | 2022-07-31 11:51 | CM.ED ---
Social Work Telephone call from the [facility], [facility]. Allison reporting that patient does not have a transfer benefit with insurance and would like family to be updated that if the [facility] would accept patient that the transfer to the [place] [facility] would not be covered by the VA benefits. Allison also reports to need a PCR COVID test completed for patient if [facility] to the [facility]. Allison reports plan to speak with physician soon and get back to this social media community manager shortly. This social media community manager provided Allison with direct contact information for this social media community manager. Telephone call to patient daughter, Lolita. This social media community manager updated Lolita on above information. Lolita voiced understanding about transfer benefit and not being covered by patient VA insurance. Medical team updated. Will continue to follow. Austyn NICKERSON, ALIS
--- NOTE | 2022-07-31 13:09 | CM.ED ---
Social Work Telephone call from [facility]. Patient has been accepted. Allison request for this social worker health services to call Allison when PCR test results have been obtained and transportation has been set up. Allison provided [phone] xt: [phone] as a return phone number. Will continue to follow. Austyn NICKERSON, ALIS
--- NOTE | 2022-07-31 14:47 | CM.ED ---
Social Work PCR COVID-19 test result obtained. Telephone call to Allison BRAVO. No answer. Voicemail left. Will continue to follow. Austyn Aguero MSW, ALIS
--- NOTE | 2022-07-31 14:58 | CM.ED ---
Social Work Telephone call received from Allison BRAVO. Allison confirms to be able to accept patient to psych unit at [facility]. Nurse to nurse to call report to [phone] xt: [phone]. Patient to be transported to the main ED at [facility] and then will be assessed and transferred to the psychiatric unit. Patient accepted by Dr. Nani Valadez. Medical team updated. Telephone call to patient daughter, Lolita. Lolita updated on above information. This social work program coordinator updated patient on transfer information. PLAN: [facility], psych facility. No further services requested or indicated. Austyn NICKERSON, ALIS
--- NOTE | 2022-07-31 19:05 | ED.RN ---
ATTEMPTED TO CALL REPORT X3, NO ANSWER.
== END 2022-07-31 19:06 ==
PROVIDERS: Emergency Medicine; Emergency Provider Emergency Medicine; Visit Provider Emergency Medicine
DX: G30.9 Alzheimer's disease, unspecified (principal); E11.9 Type 2 diabetes mellitus without complications; R44.3 Hallucinations, unspecified; E78.5 Hyperlipidemia, unspecified; I10 Essential (primary) hypertension; I25.10 Atherosclerotic heart disease of native coronary artery without angina pectoris; Z87.891 Personal history of nicotine dependence; F02.811 Dementia in other diseases classified elsewhere, unspecified severity, with agitation; Z20.822 Contact with and (suspected) exposure to COVID-19; Z79.899 Other long term (current) drug therapy
CPT/HCPCS: 70450; 80048; 80307; 81001; 82077; 84443; 85025; 87635; 87811; 93005; 99283; U0003; U0005